=== PATIENT | female | born 1950 | race Caucasian/White ===

== ENCOUNTER 2017-11-01 13:03 | Inpatient (IN) | payer OTHER, BC ==
--- NOTE | 2017-11-01 13:41 | PDOC ---
History of Present Illness - General Chief Complaint: Revisit, Lab Variance Stated Complaint: LAB VARIANCE (PCP SENT) high wbc Time Seen by Provider: 11/01/17 13:40 - History of Present Illness Initial Comments: 11/01/17 13:41 Ms. Santiago is a 67 yo female w/ pmh of HTN, HLD, and recent admission for CHF with pulmonary edema 08/22/17 who presents for evaluation on advice of PCP (Dr. Taylor). She reports she had a checkup last week at which time a UTI was identified. She failed 2 different ABX w(Cipro/ keflex) is here as labs taken outpatient showed an increased WBC level. She currently has no complaints. The patient denies chest pain, shortness of breath, headache and dizziness. Denies fever, chills, nausea, vomit, diarrhea and constipation. Denies dysuria, frequency, urgency and hematuria. Allergies: NKDA Past History - Past Medical History Allergies/Adverse Reactions: Allergies Allergy/AdvReac Type Severity Reaction Status Date / Time No Known Allergies Allergy Verified 11/01/17 13:04 Home Medications: Ambulatory Orders Acetaminophen [Tylenol .Regular Strength -] 650 mg PO Q6H PRN tablet 09/04/17 Albuterol 2.5/Ipratropium 0.5 [Duoneb -] 1 amp NEB RQID amp 09/04/17 Chlorhexidine Gluconate [Hibiclens For Decolonization -] 1 applic TP HS bottle 09/04/17 Escitalopram Oxalate [Lexapro -] 10 mg PO DAILY tablet 09/04/17 Furosemide [Lasix -] 40 mg PO DAILY tablet 09/04/17 Heparin - 5,000 unit SQ BID vial 09/04/17 Metoprolol Tartrate [Lopressor -] 12.5 mg PO BID tablet 09/04/17 Nystatin Powder [Nystop Powder -] 1 applic TP DAILY applic 09/04/17 Pantoprazole Sodium [Protonix -] 40 mg PO DAILY tablet.ec 09/04/17 Valsartan [Diovan] 40 mg PO DAILY tablet 09/04/17 predniSONE [Deltasone -] 40 mg PO DAILY tablet 09/04/17 COPD: No HTN: Yes Hypercholesterolemia: Yes - Suicide/Smoking/Psychosocial Hx Smoking History: Never smoked Have you smoked in the past 12 months: No Information on smoking cessation initiated: No Hx Alcohol Use: No Drug/Substance Use Hx: No Substance Use Type: None Review of Systems - Review of Systems Comments:: 11/01/17 13:49 GENERAL/CONSTITUTIONAL: No fever or chills. No weakness. HEAD, EYES, EARS, NOSE AND THROAT: No change in vision. No ear pain or discharge. No sore throat. CARDIOVASCULAR: No chest pain or shortness of breath RESPIRATORY: No cough, wheezing, or hemoptysis. GASTROINTESTINAL: No nausea, vomiting, diarrhea or constipation. GENITOURINARY: No dysuria, frequency, or change in urination. MUSCULOSKELETAL: No joint or muscle swelling or pain. No neck or back pain. SKIN: No rash NEUROLOGIC: No headache, vertigo, loss of consciousness, or change in strength/ sensation. ENDOCRINE: No increased thirst. No abnormal weight change HEMATOLOGIC/LYMPHATIC: No anemia, easy bleeding, or history of blood clots. ALLERGIC/IMMUNOLOGIC: No hives or skin allergy. *Physical Exam - Vital Signs Last Vital Signs Temp Pulse Resp BP Pulse Ox 98.0 F 104 H 18 149/74 100 11/01/17 13:06 11/01/17 13:06 11/01/17 13:06 11/01/17 13:06 11/01/17 13:06 - Physical Exam Comments: 11/01/17 13:49 GENERAL: Awake, alert, and fully oriented, in no acute distress HEAD: No signs of trauma, normocephalic, atraumatic EYES: PERRLA, EOMI, sclera anicteric, conjunctiva clear ENT: Auricles normal inspection, hearing grossly normal, nares patent, oropharynx clear without exudates. Moist mucosa NECK: Normal ROM, supple, no lymphadenopathy, JVD, or masses LUNGS: No distress, speaks full sentences, clear to auscultation bilaterally HEART: Regular rate and rhythm, normal S1 and S2, no murmurs, rubs or gallops, peripheral pulses normal and equal bilaterally. ABDOMEN: Soft, nontender, normoactive bowel sounds. No guarding, no rebound. No masses EXTREMITIES: Normal inspection, Normal range of motion, no edema. No clubbing or cyanosis. NEUROLOGICAL: Cranial nerves II through XII grossly intact. Normal speech, normal gait, no focal sensorimotor deficits SKIN: +Sacral decubitus ulcer (grade 2) noted. Appears to be well healing. Warm , Dry, normal turgor, no rashes or lesions noted. ED Treatment Course - LABORATORY CBC & Chemistry Diagram: 11/01/17 14:40 11/01/17 14:40 Medical Decision Making - Medical Decision Making 11/01/17 14:14 Ms. Santiago is a 67 yo female w/ pmh as described who presents for evaluation of increased WBC as described. Evaluation begun and Dr. Taylor contacted for admission. 11/01/17 15:[address] Bay covering for Dr. Taylor. 11/01/17 16:00 Zosyn started for UTI treatment. *DC/Admit/Observation/Transfer Diagnosis at time of Disposition: UTI (urinary tract infection) Qualifiers: Urinary tract infection type: site unspecified Hematuria presence: without hematuria Qualified Code(s): N39.0 - Urinary tract infection, site not specified - Discharge Dispostion Admit: Yes - Referrals Referrals: Margaret Taylor MD [Primary Care Provider] - - Patient Instructions - Post Discharge Activity
--- NOTE | 2017-11-01 14:38 | PDOC ---
Attending Attestation - HPI HPI: 11/01/17 14:52 The patient is a 67 year old female with a significant PMH of HTN, HLD, and recent admission for CHF with pulmonary edema 08/22/17 who presents to the emergency department sent in for evaluation by Dr. Taylor (PCP) for increased WBC level. The patient was told she had a UTI during a routine check up last week at which time the patient was placed on antibiotics. The patient failed 2 different antibiotics but is unable to recall the names at this time. The patient denies dysuria, frequency, urgency and hematuria. Denies fever, chills, nausea, vomit, diarrhea and constipation. Allergies: NKA Past surgical history: None reported. Social history: No reported alcohol, drug, or cigarette use. PCP: Dr. Taylor <Jess Vidal - Last Filed: 11/01/17 14:52> - Resident Resident Name: Claude Liang - ED Attending Attestation I have performed the following: I have examined & evaluated the patient, The case was reviewed & discussed with the resident, I agree w/resident's findings & plan, Exceptions are as noted - Physicial Exam PE: GENERAL: Awake, alert, and fully oriented, in no acute distress HEAD: No signs of trauma EYES: PERRLA, EOMI, sclera anicteric, conjunctiva clear ENT: Auricles normal inspection, hearing grossly normal, nares patent, oropharynx clear without exudates. Moist mucosa NECK: Normal ROM, supple, no lymphadenopathy, JVD, or masses LUNGS: Breath sounds equal, clear to auscultation bilaterally. No wheezes, and no crackles HEART: Regular rate and rhythm, normal S1 and S2, no murmurs, rubs or gallops ABDOMEN: Soft, nontender, normoactive bowel sounds. No guarding, no rebound. + Lg ventral hernia. EXTREMITIES: Normal range of motion, no edema. No clubbing or cyanosis. No cords, erythema, or tenderness NEUROLOGICAL: Cranial nerves II through XII grossly intact. Normal speech, normal gait SKIN: Warm, Dry, normal turgor, no rashes. +Sacral decub. No surrounding cellulitis. - Medical Decision Making From history from patient it appears that she was on cipro and keflex, failed both. Sent for admission for worsening leukocytosis. Labs and cultures obtained. Pt admitted to Dr. Bay. <Candice Weiss - Last Filed: 11/01/17 16:51>
[2017-11-01 14:50] LABS: BASO % 0.8 % (0-2.0); EOS % 1.1 % (0-4.5); HEMATOCRIT 31.5 % (32.4-45.2); HEMOGLOBIN 10.2 GM/dL (10.7-15.3); LYMPH % 6.4 % (8-40); MCH 26.7 pg (25.7-33.7); MCHC 32.4 g/dl (32.0-36.0); MEAN CELL VOLUME 82.2 fl (80-96); MEAN PLT VOLUME 6.4 fl (7.5-11.1); MONO % 2.5 % (3.8-10.2); NEUT % 89.2 % (42.8-82.8); PLATELET COUNT 748 K/MM3 (134-434); RBC 3.83 M/mm3 (3.60-5.2); RDW 16.1 % (11.6-15.6); WHITE BLOOD COUNT 19.9 K/mm3 (4.0-10.0)
[2017-11-01 15:12] LABS: ALBUMIN 2.5 g/dl (3.4-5.0); ANION GAP 7 (8-16); BILIRUBIN,TOTAL 0.3 mg/dL (0.2-1.0); BLOOD UREA NITROGEN 25 mg/dL (7-18); CALCIUM 8.4 mg/dL (8.5-10.1); CHLORIDE 101 mmol/L (98-107); CO2 32 mmol/L (21-32); CREATININE 1.7 mg/dL (0.55-1.02); GLUCOSE,RANDOM 111 mg/dL (74-106); POTASSIUM 3.8 mmol/L (3.5-5.1); SGOT/AST 13 U/L (15-37); SGPT/ALT 6 U/L (12-78); SODIUM 140 mmol/L (136-145); TOT PROT 7.6 g/dl (6.4-8.2)
[2017-11-01 15:13] LABS: ALK PHOS 93 U/L (45-117)
[2017-11-01] MEDS ORDERED: PIPERACILLIN/TAZOB 3.375 GM 3.375 GM in DEXTROSE 5%-WATER - 50 ML IVPB ONE (15:58)
[2017-11-01] MEDS ORDERED: PIPERACILLIN/TAZOB 3.375 GM 3.375 GM/50 ML BAG IVPB ONE (17:01)
[2017-11-01] MEDS ORDERED: ACETAMINOPHEN 325 MG TABLET (FP) PO PRN (17:26)
[2017-11-01] MEDS ORDERED: ALBUTEROL SO4 2.5/IPRATROPIUM 0.5 INH SOL 3 ML VIAL.NEB. NEB PRN (17:26)
[2017-11-01 17:32] LABS: URINE APPEARANCE SLCLOUDY; URINE BILIRUBIN NEGATIVE (<2.0 mg/dL); URINE COLOR LTYELLOW; URINE GLUCOSE (UA) NEGATIVE (NEGATIVE); URINE KETONE NEGATIVE (NEGATIVE); URINE NITRITE NEGATIVE (NEGATIVE); URINE PROTEIN NEGATIVE (NEGATIVE); URINE UROBILINOGEN NEGATIVE mg/dL (0.2-1.0)
[2017-11-01 17:57] LABS: URINE LEUK ESTERASE 1+ (NEGATIVE)
[2017-11-01 18:02] LABS: EPI CELLS FEW /HPF (FEW); URINE BACTERIA MODERATE /hpf (NONE SEEN); URINE MUCUS RARE
[2017-11-01 18:25] VITALS: BMI 29.4
--- NOTE | 2017-11-01 20:14 | HP ---
Admitting History and Physical - Primary Care Physician PCP: Margaret Conrad - Admission Chief Complaint: LEUKOCYTOSIS/UTI History of Present Illness: SENT TO ED BY DR CONRAD FOR LEUKOCYTOSIS,WEAKNESS POSITIVE UTI History Source: Medical Record - Past Medical History Cardiovascular: Yes: HTN - Smoking History Smoking history: Never smoked Have you smoked in the past 12 months: No - Alcohol/Substance Use Hx Alcohol Use: No History of Substance Use: reports: None - Social History ADL: Independent History of Recent Travel: No Home Medications - Allergies Allergies/Adverse Reactions: Allergies Allergy/AdvReac Type Severity Reaction Status Date / Time No Known Allergies Allergy Verified 11/01/17 13:04 - Home Medications Home Medications: Ambulatory Orders Acetaminophen [Tylenol .Regular Strength -] 650 mg PO Q6H PRN tablet 09/04/17 Albuterol 2.5/Ipratropium 0.5 [Duoneb -] 1 amp NEB RQID amp 09/04/17 Chlorhexidine Gluconate [Hibiclens For Decolonization -] 1 applic TP HS bottle 09/04/17 Escitalopram Oxalate [Lexapro -] 10 mg PO DAILY tablet 09/04/17 Furosemide [Lasix -] 40 mg PO DAILY tablet 09/04/17 Heparin - 5,000 unit SQ BID vial 09/04/17 Metoprolol Tartrate [Lopressor -] 12.5 mg PO BID tablet 09/04/17 Nystatin Powder [Nystop Powder -] 1 applic TP DAILY applic 09/04/17 Pantoprazole Sodium [Protonix -] 40 mg PO DAILY tablet.ec 09/04/17 Valsartan [Diovan] 40 mg PO DAILY tablet 09/04/17 predniSONE [Deltasone -] 40 mg PO DAILY tablet 09/04/17 Collagenase Clostridium Hist. [Santyl] 1 tube TD DAILY 11/01/17 Family Disease History - Family Disease History Family Disease History: Heart Disease: Father, Mother Review of Systems - Review of Systems Constitutional: reports: Weakness Eyes: reports: No Symptoms HENT: reports: No Symptoms Neck: reports: No Symptoms Cardiovascular: reports: No Symptoms Respiratory: reports: Cough, SOB Gastrointestinal: reports: No Symptoms Genitourinary: reports: Frequency, Urgency Breasts: reports: No Symptoms Reported Musculoskeletal: reports: No Symptoms Integumentary: reports: No Symptoms Neurological: reports: No Symptoms Endocrine: reports: No Symptoms Hematology/Lymphatic: reports: No Symptoms Psychiatric: reports: No Symptoms Physical Examination Vital Signs: Vital Signs Temperature 98.8 F 11/01/17 18:03 Pulse Rate 93 H 11/01/17 18:03 Respiratory Rate 18 11/01/17 18:03 Blood Pressure 156/77 11/01/17 18:03 O2 Sat by Pulse Oximetry (%) 96 11/01/17 18:03 Constitutional: Yes: Mild Distress Eyes: Yes: WNL HENT: Yes: WNL Neck: Yes: WNL Cardiovascular: Yes: WNL Respiratory: Yes: WNL, Cough, On Nasal O2 Gastrointestinal: Yes: WNL Renal/: Yes: WNL Musculoskeletal: Yes: Muscle Weakness Extremities: Yes: WNL Edema: Yes Peripheral Pulses WNL: Yes Integumentary: Yes: WNL Wound/Incision: Yes: Clean/Dry Neurological: Yes: Pre-Existing Deficit ...Motor Strength: LLE, RLE Psychiatric: Yes: Other Labs: CBC, BMP 11/01/17 14:40 11/01/17 14:40 Problem List - Problems (1) UTI (urinary tract infection) Code(s): N39.0 - URINARY TRACT INFECTION, SITE NOT SPECIFIED Qualifiers: Urinary tract infection type: site unspecified Hematuria presence: without hematuria Qualified Code(s): N39.0 - Urinary tract infection, site not specified (2) CHARLY (acute kidney injury) Code(s): N17.9 - ACUTE KIDNEY FAILURE, UNSPECIFIED (3) Anxiety Code(s): F41.9 - ANXIETY DISORDER, UNSPECIFIED (4) CKD (chronic kidney disease) Code(s): N18.9 - CHRONIC KIDNEY DISEASE, UNSPECIFIED Assessment/Plan IV ABX CHECK CULTURES RESP EVAL FOR CHRONIC LUNG DISEASE RENAL EVAL
[2017-11-01] MEDS: HEPARIN NA (PORCINE) 5,000 UNITS/ML 1ML VIAL SQ SCH (22:04)
[2017-11-02 08:13] LABS: HEMATOCRIT 28.1 % (32.4-45.2); HEMOGLOBIN 9.3 GM/dL (10.7-15.3); MCH 27.2 pg (25.7-33.7); MCHC 33.1 g/dl (32.0-36.0); MEAN CELL VOLUME 82.3 fl (80-96); MEAN PLT VOLUME 6.6 fl (7.5-11.1); PLATELET COUNT 664 K/MM3 (134-434); RBC 3.42 M/mm3 (3.60-5.2); RDW 16.3 % (11.6-15.6); WHITE BLOOD COUNT 14.4 K/mm3 (4.0-10.0)
--- NOTE | 2017-11-02 08:14 | PN ---
Progress Note (short form) - Note Progress Note: ID Late August admission for pulmonary edema says had colunga at athat time for I& O Now found to have leukocytosis as outpt with NO complaints Admitted for this reason. Looks comfortable Temp 100 on admission Selected Entries 11/02/17 06:00 Temperature 98.4 F Pulse Rate 92 H Respiratory 18 Rate Blood Pressure 151/72 Microbiology 10/29/17 14:22 Urine - Urine Clean Catch Urine Culture - Final Escherichia Coli Esbl Sheet Rock Hanger 08/27/17 06:50 Urine - Urine Clean Catch Urine Culture - Final Escherichia Coli Escherichia Coli#2 Laboratory Tests 11/01/17 11/01/17 11/01/17 14:40 14:40 17:10 WBC 19.9 H Hct 31.5 L Plt Count 748 H Neutrophils % 89.2 H Lymphocytes % 6.4 L Monocytes % 2.5 L Total Bilirubin 0.3 AST 13 L ALT 6 L Urine RBC (Auto) 4 Assessment Suspect UTI with MDRO ESBL cultured previously last admission. Elevated platelets ?? Plan ISOLATE ERTEPENEM 1 GRAM DAILY CRP ESR Tatyana THRASHER Problem List - Problems (1) Infection due to multidrug resistant organism, newly diagnosed Code(s): Z16.24 - RESISTANCE TO MULTIPLE ANTIBIOTICS (2) UTI (urinary tract infection) Code(s): N39.0 - URINARY TRACT INFECTION, SITE NOT SPECIFIED Qualifiers: Urinary tract infection type: site unspecified Hematuria presence: without hematuria Qualified Code(s): N39.0 - Urinary tract infection, site not specified (3) Thrombocytosis Code(s): D47.3 - ESSENTIAL (HEMORRHAGIC) THROMBOCYTHEMIA
[2017-11-02 08:48] LABS: ALK PHOS 74 U/L (45-117); ANION GAP 6 (8-16); BILIRUBIN,TOTAL 0.3 mg/dL (0.2-1.0); BLOOD UREA NITROGEN 21 mg/dL (7-18); CALCIUM 7.9 mg/dL (8.5-10.1); CHLORIDE 105 mmol/L (98-107); CHOLESTEROL 108 mg/dL (50-200); CO2 32 mmol/L (21-32); CREATININE 1.5 mg/dL (0.55-1.02); GLUCOSE,RANDOM 104 mg/dL (74-106); HDL CHOLESTEROL 22 mg/dL (40-60); POTASSIUM 3.9 mmol/L (3.5-5.1); SGOT/AST 12 U/L (15-37); SGPT/ALT < 6 U/L (12-78); SODIUM 143 mmol/L (136-145); TOT PROT 6.2 g/dl (6.4-8.2); TRIGLYCERIDES 165 mg/dL (35-160)
--- NOTE | 2017-11-02 08:49 | EKG ---
Test Reason : Blood Pressure : / mmHG Vent. Rate : 082 BPM Atrial Rate : 082 BPM P-R Int : 138 ms QRS Dur : 122 ms QT Int : 428 ms P-R-T Axes : 030 -15 048 degrees QTc Int : 500 ms SINUS RHYTHM WITH PREMATURE ATRIAL COMPLEXES RSR' OR QR PATTERN IN V1 SUGGESTS RIGHT VENTRICULAR CONDUCTION DELAY CANNOT RULE OUT ANTERIOR INFARCT (CITED ON OR BEFORE 22-AUG-2017) ABNORMAL ECG WHEN COMPARED WITH ECG OF 22-AUG-2017 09:29, NONSPECIFIC T WAVE ABNORMALITY, IMPROVED IN LATERAL LEADS Confirmed by RENATO CORDOBA MD ([id number]) on 11/02/2017 8:49:13 AM Referred By: Confirmed By:RENATO CORDOBA MD
--- NOTE | 2017-11-02 08:58 | CONS ---
DATE OF CONSULTATION: HISTORY: This is a 67-year-old female with a history of congestive heart failure and hypertension admitted for evaluation of a leukocytosis. She had been hospitalized in August for pulmonary edema and had a Granados catheter inserted at that time. Looking back on her previous cultures, October 29 she had Escherichia coli ESBL stock transfer clerk in the urine culture. A September 01 culture had 2 species of pansensitive Escherichia coli. She had been discharged to rehabilitation and then discharged home where she has been for several weeks. She followed up with Dr. Taylor this week in the office, and lab work revealed a leukocytosis for which she is now admitted. She denied fever, but her temperature here was 100 degrees. She denied any chills, urinary complaints, abdominal pain, diarrhea, cough, or shortness of breath. PAST MEDICAL HISTORY: As noted above. CURRENT MEDICATIONS: Prednisone 40 mg, Diovan. ALLERGIES: None known. SOCIAL HISTORY: Nonsmoker. No history of alcohol use. FAMILY HISTORY: Reviewed and noncontributory. REVIEW OF SYSTEMS: Respiratory: Denies cough or shortness of breath. Cardiac: History of pulmonary edema. No chest pain or palpitations. Gastrointestinal: No nausea, vomiting, diarrhea, abdominal pain. Genitourinary: No dysuria, hematuria, urinary frequency. PHYSICAL EXAMINATION: General: She is an alert female in no acute distress. Vital Signs: Temperature now 98.4, pulse 92, blood pressure 150/72, respirations 18. Neck: Supple without adenopathy. Lungs: Clear to percussion and auscultation. Heart: S1, S2. Regular rhythm without audible murmur. Abdomen: Soft and nontender without hepatosplenomegaly. Extremities: With lower extremity peripheral edema noted. LABORATORY DATA: White count 20,000, hemoglobin 10.2, hematocrit 31.5, platelets 748 with 89% polys, 6 lymphocytes, 2 monocytes. BUN 25, creatinine 1.7. Liver enzymes within normal limits. Urinalysis with 27 WBCs, 4 RBCs, 1+ leukocyte esterase. Blood and urine cultures pending. Chest x-ray dated November 01 in the emergency room reviewed shows a persistent, small right pleural effusion. ASSESSMENT: A 67-year-old female with a history of congestive heart failure who presents now for evaluation of leukocytosis. Thrombocytosis also noted. Her urinalysis is positive for white cells, and she has a history of extended-spectrum beta-lactamase for a previous admission. At this point, she has received a dose of Zosyn. I would await blood and urine cultures. Place her on contact isolation for resistant organism. Repeat her CBC regarding white count and platelet count. Chronic renal insufficiency is noted. I will treat her with a gram of ertapenem daily and monitor the white count and culture results. GEORGE COOK M.D. [id number]
[2017-11-02] MEDS: predniSONE 20 MG TABLET (UD) PO SCH (09:48)
[2017-11-02] MEDS: HEPARIN NA (PORCINE) 5,000 UNITS/ML 1ML VIAL SQ SCH ×2 (09:48→21:24)
[2017-11-02] MEDS: VALSARTAN 80 MG TABLET (UD) PO SCH (09:48)
[2017-11-02] MEDS: ESCITALOPRAM OXALATE 10 MG TABLET (FP) PO SCH (09:48)
[2017-11-02] MEDS: FUROSEMIDE 40 MG TABLET (FP) PO SCH (09:48)
[2017-11-02] MEDS: PANTOPRAZOLE 40 MG TABLET (FP) PO SCH (09:48)
--- NOTE | 2017-11-02 09:53 | CON.PULM ---
Consult Consult Specialty:: PULMONARY Referred by:: SAHARA Reason for Consultation:: PLEURAL EFFUSION - History of Present Illness Chief Complaint: UTI History of Present Illness: Ms. Santiago is a 67 yo female w/ pmh of HTN, HLD, and recent admission for CHF with pulmonary edema 08/22/17 who presents for evaluation on advice of PCP (Dr. Taylor). She reports she had a checkup last week at which time a UTI was identified. She failed 2 different ABX w(Cipro/ keflex) is here as labs taken outpatient showed an increased WBC level. She currently has no complaints.The patient denies chest pain, shortness of breath, headache and dizziness. Denies fever, chills, nausea, vomit, diarrhea and constipation. Denies dysuria, frequency, urgency and hematuria. - History Source History Provided By: Patient, Medical Record Limitations to Obtaining History: No Limitations - Past Medical History PSYCH ASSISTANT: No: Alzheimer's Cardio/Vascular: Yes: CHF, HTN. No: AFIB Pulmonary: Yes: Other (PLEURAL EFFUSION). No: Asthma - Alcohol/Substance Use Hx Alcohol Use: No History of Substance Use: reports: None - Smoking History Smoking history: Never smoked Have you smoked in the past 12 months: No - Social History Usual Living Arrangement: Alone (, sons live nearby) ADL: Independent History of Recent Travel: No Home Medications - Allergies Allergies/Adverse Reactions: Allergies Allergy/AdvReac Type Severity Reaction Status Date / Time No Known Allergies Allergy Verified 11/01/17 13:04 - Home Medications Home Medications: Ambulatory Orders Acetaminophen [Tylenol .Regular Strength -] 650 mg PO Q6H PRN tablet 09/04/17 Albuterol 2.5/Ipratropium 0.5 [Duoneb -] 1 amp NEB RQID amp 09/04/17 Chlorhexidine Gluconate [Hibiclens For Decolonization -] 1 applic TP HS bottle 09/04/17 Escitalopram Oxalate [Lexapro -] 10 mg PO DAILY tablet 09/04/17 Furosemide [Lasix -] 40 mg PO DAILY tablet 09/04/17 Heparin - 5,000 unit SQ BID vial 09/04/17 Metoprolol Tartrate [Lopressor -] 12.5 mg PO BID tablet 09/04/17 Nystatin Powder [Nystop Powder -] 1 applic TP DAILY applic 09/04/17 Pantoprazole Sodium [Protonix -] 40 mg PO DAILY tablet.ec 09/04/17 Valsartan [Diovan] 40 mg PO DAILY tablet 09/04/17 predniSONE [Deltasone -] 40 mg PO DAILY tablet 09/04/17 Collagenase Clostridium Hist. [Santyl] 1 tube TD DAILY 11/01/17 Family Disease History - Family Disease History Family Disease History: Heart Disease: Father, Mother Review of Systems - Review of Systems Constitutional: denies: Fever Eyes: denies: Blurred Vision HENT: denies: Ear Discharge Neck: denies: Lumps Cardiovascular: denies: Edema Respiratory: reports: SOB on Exertion Gastrointestinal: denies: Abdominal Pain Physical Exam Vital Sings: Vital Signs Temperature 98.5 F 11/02/17 09:42 Pulse Rate 97 H 11/02/17 09:42 Respiratory Rate 18 11/02/17 09:42 Blood Pressure 159/71 11/02/17 09:42 O2 Sat by Pulse Oximetry (%) 97 11/01/17 21:00 Constitutional: Yes: Calm Eyes: Yes: EOM Intact HENT: Yes: Normocephalic Neck: Yes: Trachea Midline Cardiovascular: Yes: Regular Rate and Rhythm Respiratory: Yes: CTA Bilaterally ...Inspection: Yes: WNL Gastrointestinal: Yes: Soft Edema: No Labs: CBC, BMP 11/02/17 07:00 11/02/17 07:00 Imaging - Results Chest X-ray: Report Reviewed, Image Reviewed Problem List - Problems (1) Pleural effusion Code(s): J90 - PLEURAL EFFUSION, NOT ELSEWHERE CLASSIFIED (2) UTI (urinary tract infection) Code(s): N39.0 - URINARY TRACT INFECTION, SITE NOT SPECIFIED (3) CHARLY (acute kidney injury) Code(s): N17.9 - ACUTE KIDNEY FAILURE, UNSPECIFIED (4) Anxiety Code(s): F41.9 - ANXIETY DISORDER, UNSPECIFIED Assessment/Plan RESPIRATORY STATUS REMAINS STABLE ON CURRENT REGIME BLUNTING OF RIGHT COSTOPHRENIC ANGLE A CONSEQUENCE OF PREVIOUS PULMONARY EDEMA WOULD MONITOR FOR NOW UTI/ABS PER ID THANK YOU, Neto SHARPE MD
[2017-11-02] MEDS ORDERED: PT OWN MED DRAWER 7, Y5N ONE (10:52)
[2017-11-02] MEDS: ERTAPENEM SODIUM 1 GM in SODIUM CHLORIDE 50 ML IVPB SCH (11:33)
[2017-11-02] MEDS: NYSTATIN POWDER 100,000 UNITS/GM - 15 GM TOPICAL POWDER TP SCH ×2 (11:33→22:22)
[2017-11-02] MEDS: COLLAGENASE CLOSTRIDIUM HIST. 30 GRAMS TUBE TP SCH (14:48)
--- NOTE | 2017-11-02 15:20 | CONSULT ---
Consult Consult Specialty:: Nephrology Reason for Consultation:: CKD - History of Present Illness Chief Complaint: sent in for elevated wbc History of Present Illness: Pt is a 67 year old female with pmhx of HTN, CKD, CHF and HLD. She was sent in for elevated WBC. She did have a UTI which did not respond to PO abx. She denies fevers or chills. She was found to have elevated creatinine and I was called to evaluate her. She does have hx of CKD but did not come for her workup. She denies dysuria or hematuria. She denies nsaid use. 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 No: AFIB Pulmonary: Yes: Other (PLEURAL EFFUSION). No: Asthma Renal/: Yes: Renal Inusuff - Alcohol/Substance Use Hx Alcohol Use: No History of Substance Use: reports: None - Smoking History Smoking history: Never smoked Have you smoked in the past 12 months: No - Social History Usual Living Arrangement: Alone (, sons live nearby) ADL: Independent History of Recent Travel: No Home Medications - Allergies Allergies/Adverse Reactions: Allergies Allergy/AdvReac Type Severity Reaction Status Date / Time No Known Allergies Allergy Verified 11/01/17 13:04 - Home Medications Home Medications: Ambulatory Orders Acetaminophen [Tylenol .Regular Strength -] 650 mg PO Q6H PRN tablet 09/04/17 Albuterol 2.5/Ipratropium 0.5 [Duoneb -] 1 amp NEB RQID amp 09/04/17 Chlorhexidine Gluconate [Hibiclens For Decolonization -] 1 applic TP HS bottle 09/04/17 Escitalopram Oxalate [Lexapro -] 10 mg PO DAILY tablet 09/04/17 Furosemide [Lasix -] 40 mg PO DAILY tablet 09/04/17 Heparin - 5,000 unit SQ BID vial 09/04/17 Metoprolol Tartrate [Lopressor -] 12.5 mg PO BID tablet 09/04/17 Nystatin Powder [Nystop Powder -] 1 applic TP DAILY applic 09/04/17 Pantoprazole Sodium [Protonix -] 40 mg PO DAILY tablet.ec 09/04/17 Valsartan [Diovan] 40 mg PO DAILY tablet 09/04/17 predniSONE [Deltasone -] 40 mg PO DAILY tablet 09/04/17 Collagenase Clostridium Hist. [Santyl] 1 tube TD DAILY 11/01/17 Family Disease History - Family Disease History Family Disease History: Heart Disease: Father, Mother Review of Systems - Review of Systems Constitutional: reports: No Symptoms Eyes: reports: No Symptoms HENT: reports: No Symptoms Neck: reports: No Symptoms Cardiovascular: reports: No Symptoms Respiratory: reports: No Symptoms Gastrointestinal: reports: No Symptoms Genitourinary: reports: No Symptoms Musculoskeletal: reports: No Symptoms Integumentary: reports: No Symptoms Neurological: reports: No Symptoms Endocrine: reports: No Symptoms Hematology/Lymphatic: reports: No Symptoms Psychiatric: reports: No Symptoms Physical Exam Vital Signs: Vital Signs Temperature 97.9 F 11/02/17 13:47 Pulse Rate 102 H 11/02/17 13:47 Respiratory Rate 18 11/02/17 13:47 Blood Pressure 154/82 11/02/17 13:47 O2 Sat by Pulse Oximetry (%) 97 11/01/17 21:00 Constitutional: Yes: Calm Eyes: Yes: Conjunctiva Clear HENT: Yes: Atraumatic Neck: Yes: Supple Cardiovascular: Yes: S1, S2 Respiratory: Yes: CTA Bilaterally Gastrointestinal: Yes: Soft, Hernia Renal/: Yes: WNL Musculoskeletal: Yes: WNL Edema: No Neurological: Yes: Oriented Psychiatric: Yes: Oriented Labs: CBC, BMP 11/02/17 07:00 11/02/17 07:00 Laboratory Tests 08/30/17 08/31/17 09/01/17 06:15 05:30 06:05 WBC Hgb BUN Creatinine 1.8 H 1.7 H 1.7 H Urine Protein Urine Blood 09/02/17 09/03/17 09/04/17 05:45 05:50 06:30 WBC Hgb BUN Creatinine 1.8 H 1.5 H 1.2 H Urine Protein Urine Blood 10/29/17 11/01/17 11/01/17 14:04 14:40 14:40 WBC Hgb 10.2 L BUN Creatinine 1.5 H 1.7 H Urine Protein Urine Blood 11/01/17 11/02/17 11/02/17 17:10 07:00 07:00 WBC 14.4 H Hgb 9.3 L BUN 21 H Creatinine 1.5 H Urine Protein Negative Urine Blood 1+ H Imaging - Results Chest X-ray: Report Reviewed Problem List - Problems (1) UTI (urinary tract infection) Code(s): N39.0 - URINARY TRACT INFECTION, SITE NOT SPECIFIED Qualifiers: Urinary tract infection type: site unspecified Hematuria presence: without hematuria Qualified Code(s): N39.0 - Urinary tract infection, site not specified (2) CKD (chronic kidney disease) Code(s): N18.9 - CHRONIC KIDNEY DISEASE, UNSPECIFIED Assessment/Plan Current Medications Generic Name Dose Route Start Last Admin Trade Name Freq PRN Reason Stop Dose Admin Acetaminophen 650 mg 11/01/17 17:26 Tylenol - PO Q6H PRN PAIN LEVEL 6-10 Albuterol/Ipratropium 1 amp 11/01/17 17:26 Duoneb - NEB Q6H PRN SHORTNESS OF BREATH Collagenase 1 applic 11/02/17 11:30 11/02/17 14:48 Santyl - TP 1 applic DAILY [facility] Administration Escitalopram Oxalate 10 mg 11/02/17 10:00 11/02/17 09:48 Lexapro - PO 10 mg DAILY [facility] Administration Furosemide 40 mg 11/02/17 10:00 11/02/17 09:48 Lasix - PO 40 mg DAILY [facility] Administration Heparin Sodium (Porcine) 5,000 unit 11/01/17 22:00 11/02/17 09:48 Heparin - SQ 5,000 unit BID [facility] Administration Ertapenem 1 gm/ Sodium 50 mls @ 50 mls/hr 11/02/17 10:00 11/02/17 11:33 Chloride IVPB 50 mls/hr DAILY [facility] Administration Protocol Nystatin 1 applic 11/02/17 10:00 11/02/17 11:33 Nystop Powder - TP Not Given DAILY [facility] Pantoprazole Sodium 40 mg 11/02/17 10:00 11/02/17 09:48 Protonix - PO 40 mg DAILY [facility] Administration Prednisone 40 mg 11/02/17 10:00 11/02/17 09:48 Deltasone - PO 40 mg DAILY [facility] Administration Valsartan 80 mg 11/02/17 10:00 11/02/17 09:48 Diovan - PO 80 mg DAILY [facility] Administration Impression 1. CKD 2. UTI 3. HTN 4. pleural effusion 5. CHF 6. hx smoking Plan - cont abx - renal function near baseline - cont diovan and lasix - monitor renal function - will need further workup and follow up after discharge
--- NOTE | 2017-11-02 17:30 | PN ---
Progress Note, Physician Chief Complaint: AWAKE ALERT DENIES FEVER OR CHILLS - Current Medication List Current Medications: Active Medications Acetaminophen (Tylenol -) 650 mg PO Q6H PRN PRN Reason: PAIN LEVEL 6-10 Albuterol/Ipratropium (Duoneb -) 1 amp NEB Q6H PRN PRN Reason: SHORTNESS OF BREATH Collagenase (Santyl -) 1 applic TP DAILY [facility] Last Admin: 11/02/17 14:48 Dose: 1 applic Escitalopram Oxalate (Lexapro -) 10 mg PO DAILY [facility] Last Admin: 11/02/17 09:48 Dose: 10 mg Furosemide (Lasix -) 40 mg PO DAILY [facility] Last Admin: 11/02/17 09:48 Dose: 40 mg Heparin Sodium (Porcine) (Heparin -) 5,000 unit SQ BID [facility] Last Admin: 11/02/17 09:48 Dose: 5,000 unit Ertapenem 1 gm/ Sodium (Chloride) 50 mls @ 50 mls/hr IVPB DAILY [facility] PRN Reason: Protocol Last Admin: 11/02/17 11:33 Dose: 50 mls/hr Nystatin (Nystop Powder -) 1 applic TP DAILY [facility] Last Admin: 11/02/17 11:33 Dose: Not Given Pantoprazole Sodium (Protonix -) 40 mg PO DAILY [facility] Last Admin: 11/02/17 09:48 Dose: 40 mg Prednisone (Deltasone -) 40 mg PO DAILY [facility] Last Admin: 11/02/17 09:48 Dose: 40 mg Valsartan (Diovan -) 80 mg PO DAILY [facility] Last Admin: 11/02/17 09:48 Dose: 80 mg - Objective Vital Signs: Vital Signs Temperature 98.7 F 11/02/17 16:15 Pulse Rate 95 H 11/02/17 16:15 Respiratory Rate 18 11/02/17 16:15 Blood Pressure 153/70 11/02/17 16:15 O2 Sat by Pulse Oximetry (%) 97 11/02/17 09:42 Constitutional: Yes: No Distress Eyes: Yes: WNL HENT: Yes: WNL Neck: Yes: WNL Cardiovascular: Yes: WNL Respiratory: Yes: WNL Gastrointestinal: Yes: WNL Genitourinary: Yes: WNL Musculoskeletal: Yes: Muscle Weakness Extremities: Yes: WNL Edema: No Peripheral Pulses WNL: Yes Integumentary: Yes: Pressure Ulcer (SACRAL) Wound/Incision: Yes: Clean/Dry Neurological: Yes: WNL ...Motor Strength: WNL Psychiatric: Yes: WNL Labs: CBC, BMP 11/02/17 07:00 11/02/17 07:00 Problem List - Problems (1) UTI (urinary tract infection) Code(s): N39.0 - URINARY TRACT INFECTION, SITE NOT SPECIFIED Qualifiers: Urinary tract infection type: site unspecified Hematuria presence: without hematuria Qualified Code(s): N39.0 - Urinary tract infection, site not specified (2) CHARLY (acute kidney injury) Code(s): N17.9 - ACUTE KIDNEY FAILURE, UNSPECIFIED (3) Anxiety Code(s): F41.9 - ANXIETY DISORDER, UNSPECIFIED (4) CKD (chronic kidney disease) Code(s): N18.9 - CHRONIC KIDNEY DISEASE, UNSPECIFIED Assessment/Plan IV ABX CHECK CULTURES RESP EVAL FOR CHRONIC LUNG DISEASE RENAL EVAL [facility]
[2017-11-03] MEDS ORDERED: PT OWN MED DRAWER 7, Y5N ONE (09:35)
[2017-11-03] MEDS: FUROSEMIDE 40 MG TABLET (FP) PO SCH (09:44)
[2017-11-03] MEDS: NYSTATIN POWDER 100,000 UNITS/GM - 15 GM TOPICAL POWDER TP SCH (09:44)
[2017-11-03] MEDS: ERTAPENEM SODIUM 1 GM in SODIUM CHLORIDE 50 ML IVPB SCH (09:44)
[2017-11-03] MEDS: predniSONE 20 MG TABLET (UD) PO SCH (09:44)
[2017-11-03] MEDS: PANTOPRAZOLE 40 MG TABLET (FP) PO SCH (09:44)
[2017-11-03] MEDS: VALSARTAN 80 MG TABLET (UD) PO SCH (09:44)
[2017-11-03] MEDS: HEPARIN NA (PORCINE) 5,000 UNITS/ML 1ML VIAL SQ SCH ×2 (09:44→22:27)
[2017-11-03] MEDS: ESCITALOPRAM OXALATE 10 MG TABLET (FP) PO SCH (09:44)
[2017-11-03] MEDS: COLLAGENASE CLOSTRIDIUM HIST. 30 GRAMS TUBE TP SCH (09:45)
--- NOTE | 2017-11-03 11:36 | PN ---
Progress Note (short form) - Note Progress Note: PULMONARY AWAKE/ALERT/AFEBRILE PALE/ANICTERIC Constitutional: Yes: Calm Eyes: Yes: EOM Intact HENT: Yes: Normocephalic Neck: Yes: Trachea Midline Cardiovascular: Yes: Regular Rate and Rhythm Respiratory: Yes: CTA Bilaterally Gastrointestinal: Yes: Soft Edema: No Imaging - Results Chest X-ray: Report Reviewed, Image Reviewed Problem List - Problems (1) Pleural effusion Code(s): J90 - PLEURAL EFFUSION, NOT ELSEWHERE CLASSIFIED (2) UTI (urinary tract infection) Code(s): N39.0 - URINARY TRACT INFECTION, SITE NOT SPECIFIED (3) CHARLY (acute kidney injury) Code(s): N17.9 - ACUTE KIDNEY FAILURE, UNSPECIFIED (4) Anxiety Code(s): F41.9 - ANXIETY DISORDER, UNSPECIFIED Assessment/Plan RESPIRATORY STATUS REMAINS STABLE ON CURRENT REGIME BLUNTING OF RIGHT COSTOPHRENIC ANGLE A CONSEQUENCE OF PREVIOUS PULMONARY EDEMA WOULD MONITOR FOR NOW UTI/ABS PER MARIA DEL ROSARIO SHARPE MD Problem List - Problems (1) Pleural effusion Code(s): J90 - PLEURAL EFFUSION, NOT ELSEWHERE CLASSIFIED (2) UTI (urinary tract infection) Code(s): N39.0 - URINARY TRACT INFECTION, SITE NOT SPECIFIED (3) CHARLY (acute kidney injury) Code(s): N17.9 - ACUTE KIDNEY FAILURE, UNSPECIFIED (4) Anxiety Code(s): F41.9 - ANXIETY DISORDER, UNSPECIFIED
--- NOTE | 2017-11-03 12:03 | PN ---
Progress Note, Physician Chief Complaint: IN BED AWAKE SON BEDSIDE NO DISTRESS - Current Medication List Current Medications: Active Medications Acetaminophen (Tylenol -) 650 mg PO Q6H PRN PRN Reason: PAIN LEVEL 6-10 Albuterol/Ipratropium (Duoneb -) 1 amp NEB Q6H PRN PRN Reason: SHORTNESS OF BREATH Collagenase (Santyl -) 1 applic TP DAILY [facility] Last Admin: 11/03/17 09:45 Dose: 1 applic Escitalopram Oxalate (Lexapro -) 10 mg PO DAILY [facility] Last Admin: 11/03/17 09:44 Dose: 10 mg Furosemide (Lasix -) 40 mg PO DAILY [facility] Last Admin: 11/03/17 09:44 Dose: 40 mg Heparin Sodium (Porcine) (Heparin -) 5,000 unit SQ BID [facility] Last Admin: 11/03/17 09:44 Dose: 5,000 unit Ertapenem 1 gm/ Sodium (Chloride) 50 mls @ 50 mls/hr IVPB DAILY [facility] PRN Reason: Protocol Last Admin: 11/03/17 09:44 Dose: 50 mls/hr Nystatin (Nystop Powder -) 1 applic TP DAILY [facility] Last Admin: 11/03/17 09:44 Dose: 1 applic Pantoprazole Sodium (Protonix -) 40 mg PO DAILY [facility] Last Admin: 11/03/17 09:44 Dose: 40 mg Prednisone (Deltasone -) 40 mg PO DAILY [facility] Last Admin: 11/03/17 09:44 Dose: 40 mg Valsartan (Diovan -) 80 mg PO DAILY [facility] Last Admin: 11/03/17 09:44 Dose: 80 mg - Objective Vital Signs: Vital Signs Temperature 97.5 F L 11/03/17 10:00 Pulse Rate 86 11/03/17 10:00 Respiratory Rate 20 11/03/17 10:00 Blood Pressure 143/68 11/03/17 10:00 O2 Sat by Pulse Oximetry (%) 89 L 11/03/17 09:00 Constitutional: Yes: No Distress Eyes: Yes: WNL HENT: Yes: WNL Neck: Yes: WNL Cardiovascular: Yes: WNL Respiratory: Yes: WNL Gastrointestinal: Yes: WNL Genitourinary: Yes: WNL Musculoskeletal: Yes: WNL Extremities: Yes: WNL Edema: No Peripheral Pulses WNL: Yes Integumentary: Yes: Pressure Ulcer. No: WNL (BUTTOCK ULCER) Wound/Incision: Yes: Dressing Dry and Intact Neurological: Yes: Pre-Existing Deficit ...Motor Strength: LLE, RLE Psychiatric: Yes: Other Labs: CBC, BMP 11/02/17 07:00 11/02/17 07:00 Problem List - Problems (1) UTI (urinary tract infection) Code(s): N39.0 - URINARY TRACT INFECTION, SITE NOT SPECIFIED Qualifiers: Urinary tract infection type: site unspecified Hematuria presence: without hematuria Qualified Code(s): N39.0 - Urinary tract infection, site not specified (2) CHARLY (acute kidney injury) Code(s): N17.9 - ACUTE KIDNEY FAILURE, UNSPECIFIED (3) Anxiety Code(s): F41.9 - ANXIETY DISORDER, UNSPECIFIED (4) CKD (chronic kidney disease) Code(s): N18.9 - CHRONIC KIDNEY DISEASE, UNSPECIFIED Assessment/Plan IV ABX CHECK CULTURES RESP EVAL FOR CHRONIC LUNG DISEASE RENAL EVAL [facility]
--- NOTE | 2017-11-03 13:18 | PN ---
Progress Note, Physician History of Present Illness: Awake, alert Supine in bed No complaints Denies dysuria No suprapubic or flank pain Afebrile WBC improved Urine c/s LF BC (-) - Current Medication List Current Medications: Active Medications Acetaminophen (Tylenol -) 650 mg PO Q6H PRN PRN Reason: PAIN LEVEL 6-10 Albuterol/Ipratropium (Duoneb -) 1 amp NEB Q6H PRN PRN Reason: SHORTNESS OF BREATH Collagenase (Santyl -) 1 applic TP DAILY [facility] Last Admin: 11/03/17 09:45 Dose: 1 applic Escitalopram Oxalate (Lexapro -) 10 mg PO DAILY [facility] Last Admin: 11/03/17 09:44 Dose: 10 mg Furosemide (Lasix -) 40 mg PO DAILY [facility] Last Admin: 11/03/17 09:44 Dose: 40 mg Heparin Sodium (Porcine) (Heparin -) 5,000 unit SQ BID [facility] Last Admin: 11/03/17 09:44 Dose: 5,000 unit Ertapenem 1 gm/ Sodium (Chloride) 50 mls @ 50 mls/hr IVPB DAILY [facility] PRN Reason: Protocol Last Admin: 11/03/17 09:44 Dose: 50 mls/hr Nystatin (Nystop Powder -) 1 applic TP DAILY [facility] Last Admin: 11/03/17 09:44 Dose: 1 applic Pantoprazole Sodium (Protonix -) 40 mg PO DAILY [facility] Last Admin: 11/03/17 09:44 Dose: 40 mg Prednisone (Deltasone -) 40 mg PO DAILY [facility] Last Admin: 11/03/17 09:44 Dose: 40 mg Valsartan (Diovan -) 80 mg PO DAILY [facility] Last Admin: 11/03/17 09:44 Dose: 80 mg - Objective Vital Signs: Vital Signs Temperature 97.5 F L 11/03/17 10:00 Pulse Rate 86 11/03/17 10:00 Respiratory Rate 20 11/03/17 10:00 Blood Pressure 143/68 11/03/17 10:00 O2 Sat by Pulse Oximetry (%) 89 L 11/03/17 09:00 Constitutional: Yes: No Distress Cardiovascular: Yes: Regular Rate and Rhythm, S1, S2 Respiratory: Yes: CTA Bilaterally Gastrointestinal: Yes: Normal Bowel Sounds, Soft. No: Tenderness Genitourinary: No: CVA Tenderness - Left, CVA Tenderness - Right Labs: CBC, BMP 11/02/17 07:00 11/02/17 07:00 Assessment/Plan UTI Hx ESBL Leukocytosis Azotemia Continue ertapenem Await urine c/s
--- NOTE | 2017-11-03 16:42 | PN ---
Progress Note, Physician History of Present Illness: Pt seen and examined at bedside. She says she feels well. She denies fevers or chills. - Current Medication List Current Medications: Active Medications Acetaminophen (Tylenol -) 650 mg PO Q6H PRN PRN Reason: PAIN LEVEL 6-10 Albuterol/Ipratropium (Duoneb -) 1 amp NEB Q6H PRN PRN Reason: SHORTNESS OF BREATH Collagenase (Santyl -) 1 applic TP DAILY [facility] Last Admin: 11/03/17 09:45 Dose: 1 applic Escitalopram Oxalate (Lexapro -) 10 mg PO DAILY [facility] Last Admin: 11/03/17 09:44 Dose: 10 mg Furosemide (Lasix -) 40 mg PO DAILY [facility] Last Admin: 11/03/17 09:44 Dose: 40 mg Heparin Sodium (Porcine) (Heparin -) 5,000 unit SQ BID [facility] Last Admin: 11/03/17 09:44 Dose: 5,000 unit Ertapenem 1 gm/ Sodium (Chloride) 50 mls @ 50 mls/hr IVPB DAILY [facility] PRN Reason: Protocol Last Admin: 11/03/17 09:44 Dose: 50 mls/hr Nystatin (Nystop Powder -) 1 applic TP DAILY [facility] Last Admin: 11/03/17 09:44 Dose: 1 applic Pantoprazole Sodium (Protonix -) 40 mg PO DAILY [facility] Last Admin: 11/03/17 09:44 Dose: 40 mg Prednisone (Deltasone -) 40 mg PO DAILY [facility] Last Admin: 11/03/17 09:44 Dose: 40 mg Valsartan (Diovan -) 80 mg PO DAILY [facility] Last Admin: 11/03/17 09:44 Dose: 80 mg - Objective Vital Signs: Vital Signs Temperature 97.9 F 11/03/17 13:52 Pulse Rate 89 11/03/17 14:53 Respiratory Rate 20 11/03/17 14:53 Blood Pressure 161/77 11/03/17 14:53 O2 Sat by Pulse Oximetry (%) 89 L 11/03/17 09:00 Constitutional: Yes: Calm Eyes: Yes: Conjunctiva Clear HENT: Yes: Atraumatic Cardiovascular: Yes: S1, S2 Respiratory: Yes: CTA Bilaterally Gastrointestinal: Yes: Soft, Hernia Genitourinary: Yes: WNL Musculoskeletal: Yes: WNL Edema: No Neurological: Yes: Oriented Psychiatric: Yes: Oriented Labs: CBC, BMP 11/02/17 07:00 11/02/17 07:00 Problem List - Problems (1) UTI (urinary tract infection) Code(s): N39.0 - URINARY TRACT INFECTION, SITE NOT SPECIFIED Qualifiers: Urinary tract infection type: site unspecified Hematuria presence: without hematuria Qualified Code(s): N39.0 - Urinary tract infection, site not specified (2) CKD (chronic kidney disease) Code(s): N18.9 - CHRONIC KIDNEY DISEASE, UNSPECIFIED Assessment/Plan Current Medications Generic Name Dose Route Start Last Admin Trade Name Freq PRN Reason Stop Dose Admin Acetaminophen 650 mg 11/01/17 17:26 Tylenol - PO Q6H PRN PAIN LEVEL 6-10 Albuterol/Ipratropium 1 amp 11/01/17 17:26 Duoneb - NEB Q6H PRN SHORTNESS OF BREATH Collagenase 1 applic 11/02/17 11:30 11/03/17 09:45 Santyl - TP 1 applic DAILY [facility] Administration Escitalopram Oxalate 10 mg 11/02/17 10:00 11/03/17 09:44 Lexapro - PO 10 mg DAILY [facility] Administration Furosemide 40 mg 11/02/17 10:00 11/03/17 09:44 Lasix - PO 40 mg DAILY [facility] Administration Heparin Sodium (Porcine) 5,000 unit 11/01/17 22:00 11/03/17 09:44 Heparin - SQ 5,000 unit BID [facility] Administration Ertapenem 1 gm/ Sodium 50 mls @ 50 mls/hr 11/02/17 10:00 11/03/17 09:44 Chloride IVPB 50 mls/hr DAILY [facility] Administration Protocol Nystatin 1 applic 11/02/17 10:00 11/03/17 09:44 Nystop Powder - TP 1 applic DAILY [facility] Administration Pantoprazole Sodium 40 mg 11/02/17 10:00 11/03/17 09:44 Protonix - PO 40 mg DAILY [facility] Administration Prednisone 40 mg 11/02/17 10:00 11/03/17 09:44 Deltasone - PO 40 mg DAILY [facility] Administration Valsartan 80 mg 11/02/17 10:00 11/03/17 09:44 Diovan - PO 80 mg DAILY [facility] Administration Impression 1. CKD 2. UTI 3. HTN 4. pleural effusion 5. CHF 6. hx smoking Plan - check bmp - check cbc - cont diovan - cont lasix - will need further workup and follow up after discharge
[2017-11-04 06:59] LABS: BASO % 0.4 % (0-2.0); EOS % 0.1 % (0-4.5); HEMATOCRIT 28.3 % (32.4-45.2); HEMOGLOBIN 9.2 GM/dL (10.7-15.3); LYMPH % 13.7 % (8-40); MCH 26.9 pg (25.7-33.7); MCHC 32.5 g/dl (32.0-36.0); MEAN CELL VOLUME 82.8 fl (80-96); MEAN PLT VOLUME 6.9 fl (7.5-11.1); MONO % 5.6 % (3.8-10.2); NEUT % 80.2 % (42.8-82.8); PLATELET COUNT 654 K/MM3 (134-434); RBC 3.42 M/mm3 (3.60-5.2); RDW 16.7 % (11.6-15.6); WHITE BLOOD COUNT 14.1 K/mm3 (4.0-10.0)
[2017-11-04 07:32] LABS: CALCIUM 8.5 mg/dL (8.5-10.1); CHLORIDE 105 mmol/L (98-107); POTASSIUM 3.7 mmol/L (3.5-5.1); SODIUM 145 mmol/L (136-145)
[2017-11-04 07:35] LABS: ANION GAP 9 (8-16); BLOOD UREA NITROGEN 27 mg/dL (7-18); CO2 31 mmol/L (21-32); CREATININE 1.5 mg/dL (0.55-1.02); GLUCOSE,RANDOM 101 mg/dL (74-106)
--- NOTE | 2017-11-04 08:51 | PN ---
Progress Note, Physician - Current Medication List Current Medications: Active Medications Acetaminophen (Tylenol -) 650 mg PO Q6H PRN PRN Reason: PAIN LEVEL 6-10 Albuterol/Ipratropium (Duoneb -) 1 amp NEB Q6H PRN PRN Reason: SHORTNESS OF BREATH Collagenase (Santyl -) 1 applic TP DAILY [facility] Last Admin: 11/03/17 09:45 Dose: 1 applic Escitalopram Oxalate (Lexapro -) 10 mg PO DAILY [facility] Last Admin: 11/03/17 09:44 Dose: 10 mg Furosemide (Lasix -) 40 mg PO DAILY [facility] Last Admin: 11/03/17 09:44 Dose: 40 mg Heparin Sodium (Porcine) (Heparin -) 5,000 unit SQ BID [facility] Last Admin: 11/03/17 22:27 Dose: 5,000 unit Ertapenem 1 gm/ Sodium (Chloride) 50 mls @ 50 mls/hr IVPB DAILY [facility] PRN Reason: Protocol Last Admin: 11/03/17 09:44 Dose: 50 mls/hr Nystatin (Nystop Powder -) 1 applic TP DAILY [facility] Last Admin: 11/03/17 09:44 Dose: 1 applic Pantoprazole Sodium (Protonix -) 40 mg PO DAILY [facility] Last Admin: 11/03/17 09:44 Dose: 40 mg Prednisone (Deltasone -) 40 mg PO DAILY [facility] Last Admin: 11/03/17 09:44 Dose: 40 mg Valsartan (Diovan -) 80 mg PO DAILY [facility] Last Admin: 11/03/17 09:44 Dose: 80 mg - Objective Vital Signs: Vital Signs Temperature 97.6 F 11/04/17 06:00 Pulse Rate 78 11/04/17 06:00 Respiratory Rate 20 11/04/17 06:00 Blood Pressure 162/86 11/04/17 06:00 O2 Sat by Pulse Oximetry (%) 96 11/03/17 21:00 Cardiovascular: Yes: Regular Rate and Rhythm Respiratory: Yes: Regular, CTA Bilaterally Gastrointestinal: Yes: Normal Bowel Sounds, Soft Labs: CBC, BMP 11/04/17 06:00 11/04/17 06:00 Problem List - Problems (1) CHF (congestive heart failure) Assessment/Plan: PO LASIX Code(s): I50.9 - HEART FAILURE, UNSPECIFIED (2) HTN (hypertension) Assessment/Plan: SAME MEDS Code(s): I10 - ESSENTIAL (PRIMARY) HYPERTENSION (3) ESBL (extended spectrum beta-lactamase) producing bacteria infection Assessment/Plan: ON ETRAPENEM ID ON CASE Code(s): A49.9 - BACTERIAL INFECTION, UNSPECIFIED; Z16.12 - EXTENDED SPECTRUM BETA LACTAMASE (ESBL) RESISTANCE (4) 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
--- NOTE | 2017-11-04 10:42 | PN ---
Progress Note (short form) - Note Progress Note: ID Ertepenem day 2 threrapy No complaints Selected Entries 11/04/17 06:00 Temperature 97.6 F Pulse Rate 78 Respiratory 20 Rate Blood Pressure 162/86 Microbiology 11/01/17 17:10 Urine - Urine Clean Catch Urine Culture - Preliminary Lactose Fermenting Neg Bacilli 11/01/17 14:40 Blood - Peripheral Venous Blood Culture - Preliminary NO GROWTH OBTAINED AFTER 48 HOURS, INCUBATION TO CONTINUE FOR 3 DAYS. 11/01/17 14:40 Blood - Peripheral Venous Blood Culture - Preliminary NO GROWTH OBTAINED AFTER 48 HOURS, INCUBATION TO CONTINUE FOR 3 DAYS. Laboratory Tests 11/01/17 11/02/17 11/02/17 14:40 07:00 07:30 WBC 19.9 H 14.4 H Hgb Hct Plt Count ESR BUN Creatinine C-Reactive Protein 10.8 H 11/03/17 11/04/17 11/04/17 06:00 06:00 06:00 WBC 14.1 H Hgb 9.2 L Hct 28.3 L Plt Count 654 H ESR 97 H BUN 27 H Creatinine 1.5 H C-Reactive Protein Assessment UTI elevated WBC ? UTI related History of ESBL Plan Continue antibiotic as ordered. Patient says she could not come back and forth to hospital for antibiotic Tatyana THRASHER Problem List - Problems (1) Infection due to multidrug resistant organism, newly diagnosed Code(s): Z16.24 - RESISTANCE TO MULTIPLE ANTIBIOTICS (2) UTI (urinary tract infection) Code(s): N39.0 - URINARY TRACT INFECTION, SITE NOT SPECIFIED Qualifiers: Urinary tract infection type: site unspecified Hematuria presence: without hematuria Qualified Code(s): N39.0 - Urinary tract infection, site not specified (3) Thrombocytosis Code(s): D47.3 - ESSENTIAL (HEMORRHAGIC) THROMBOCYTHEMIA
[2017-11-04] MEDS: COLLAGENASE CLOSTRIDIUM HIST. 30 GRAMS TUBE TP SCH (11:14)
[2017-11-04] MEDS: ERTAPENEM SODIUM 1 GM in SODIUM CHLORIDE 50 ML IVPB SCH (11:16)
[2017-11-04] MEDS: VALSARTAN 80 MG TABLET (UD) PO SCH (11:16)
[2017-11-04] MEDS: METOPROLOL TARTRATE 25 MG TABLET (FP) PO SCH ×2 (11:16→21:20)
[2017-11-04] MEDS: PANTOPRAZOLE 40 MG TABLET (FP) PO SCH (11:16)
[2017-11-04] MEDS: ESCITALOPRAM OXALATE 10 MG TABLET (FP) PO SCH (11:16)
[2017-11-04] MEDS: FUROSEMIDE 40 MG TABLET (FP) PO SCH (11:16)
[2017-11-04] MEDS: HEPARIN NA (PORCINE) 5,000 UNITS/ML 1ML VIAL SQ SCH ×2 (11:16→21:21)
[2017-11-04] MEDS: NYSTATIN POWDER 100,000 UNITS/GM - 15 GM TOPICAL POWDER TP SCH (11:17)
--- NOTE | 2017-11-04 13:23 | PN ---
Progress Note, Physician History of Present Illness: Pt seen and examined at bedside. She is awake and alert. She denies shortness of breath. - Current Medication List Current Medications: Active Medications Acetaminophen (Tylenol -) 650 mg PO Q6H PRN PRN Reason: PAIN LEVEL 6-10 Albuterol/Ipratropium (Duoneb -) 1 amp NEB Q6H PRN PRN Reason: SHORTNESS OF BREATH Collagenase (Santyl -) 1 applic TP DAILY [facility] Last Admin: 11/04/17 11:14 Dose: 1 applic Escitalopram Oxalate (Lexapro -) 10 mg PO DAILY [facility] Last Admin: 11/04/17 11:16 Dose: 10 mg Furosemide (Lasix -) 40 mg PO DAILY [facility] Last Admin: 11/04/17 11:16 Dose: 40 mg Heparin Sodium (Porcine) (Heparin -) 5,000 unit SQ BID [facility] Last Admin: 11/04/17 11:16 Dose: 5,000 unit Ertapenem 1 gm/ Sodium (Chloride) 50 mls @ 50 mls/hr IVPB DAILY [facility] PRN Reason: Protocol Last Admin: 11/04/17 11:16 Dose: 50 mls/hr Metoprolol Tartrate (Lopressor -) 12.5 mg PO BID [facility] Last Admin: 11/04/17 11:16 Dose: 12.5 mg Nystatin (Nystop Powder -) 1 applic TP DAILY [facility] Last Admin: 11/04/17 11:17 Dose: 1 applic Pantoprazole Sodium (Protonix -) 40 mg PO DAILY [facility] Last Admin: 11/04/17 11:16 Dose: 40 mg Valsartan (Diovan -) 80 mg PO DAILY [facility] Last Admin: 11/04/17 11:16 Dose: 80 mg - Objective Vital Signs: Vital Signs Temperature 97.4 F L 11/04/17 10:00 Pulse Rate 82 11/04/17 10:00 Respiratory Rate 18 11/04/17 10:00 Blood Pressure 173/82 11/04/17 10:00 O2 Sat by Pulse Oximetry (%) 96 11/03/17 21:00 Constitutional: Yes: Calm Eyes: Yes: Conjunctiva Clear HENT: Yes: Atraumatic Neck: Yes: Supple Cardiovascular: Yes: S1, S2 Respiratory: Yes: CTA Bilaterally Gastrointestinal: Yes: Soft Genitourinary: Yes: WNL Musculoskeletal: Yes: WNL Edema: No Neurological: Yes: Oriented Psychiatric: Yes: Oriented Labs: CBC, BMP 11/04/17 06:00 11/04/17 06:00 Problem List - Problems (1) UTI (urinary tract infection) Code(s): N39.0 - URINARY TRACT INFECTION, SITE NOT SPECIFIED Qualifiers: Urinary tract infection type: site unspecified Hematuria presence: without hematuria Qualified Code(s): N39.0 - Urinary tract infection, site not specified (2) CKD (chronic kidney disease) Code(s): N18.9 - CHRONIC KIDNEY DISEASE, UNSPECIFIED Assessment/Plan Current Medications Generic Name Dose Route Start Last Admin Trade Name Freq PRN Reason Stop Dose Admin Acetaminophen 650 mg 11/01/17 17:26 Tylenol - PO Q6H PRN PAIN LEVEL 6-10 Albuterol/Ipratropium 1 amp 11/01/17 17:26 Duoneb - NEB Q6H PRN SHORTNESS OF BREATH Collagenase 1 applic 11/02/17 11:30 11/04/17 11:14 Santyl - TP 1 applic DAILY [facility] Administration Escitalopram Oxalate 10 mg 11/02/17 10:00 11/04/17 11:16 Lexapro - PO 10 mg DAILY [facility] Administration Furosemide 40 mg 11/02/17 10:00 11/04/17 11:16 Lasix - PO 40 mg DAILY [facility] Administration Heparin Sodium (Porcine) 5,000 unit 11/01/17 22:00 11/04/17 11:16 Heparin - SQ 5,000 unit BID [facility] Administration Ertapenem 1 gm/ Sodium 50 mls @ 50 mls/hr 11/02/17 10:00 11/04/17 11:16 Chloride IVPB 50 mls/hr DAILY [facility] Administration Protocol Metoprolol Tartrate 12.5 mg 11/04/17 10:00 11/04/17 11:16 Lopressor - PO 12.5 mg BID [facility] Administration Nystatin 1 applic 11/02/17 10:00 11/04/17 11:17 Nystop Powder - TP 1 applic DAILY [facility] Administration Pantoprazole Sodium 40 mg 11/02/17 10:00 11/04/17 11:16 Protonix - PO 40 mg DAILY [facility] Administration Valsartan 80 mg 11/02/17 10:00 11/04/17 11:16 Diovan - PO 80 mg DAILY [facility] Administration Impression 1. CKD 2. UTI 3. HTN 4. pleural effusion 5. CHF 6. hx smoking Plan - renal function stable - cont abx - recommend renal workup as outpt - avoid nsaids - cont diovan - cont lasix - will follow PRN
--- NOTE | 2017-11-04 14:00 | PN ---
Progress Note, Physician History of Present Illness: pulmonary alert,no distress,-sob,-cough - Current Medication List Current Medications: Active Medications Acetaminophen (Tylenol -) 650 mg PO Q6H PRN PRN Reason: PAIN LEVEL 6-10 Albuterol/Ipratropium (Duoneb -) 1 amp NEB Q6H PRN PRN Reason: SHORTNESS OF BREATH Collagenase (Santyl -) 1 applic TP DAILY [facility] Last Admin: 11/04/17 11:14 Dose: 1 applic Escitalopram Oxalate (Lexapro -) 10 mg PO DAILY [facility] Last Admin: 11/04/17 11:16 Dose: 10 mg Furosemide (Lasix -) 40 mg PO DAILY [facility] Last Admin: 11/04/17 11:16 Dose: 40 mg Heparin Sodium (Porcine) (Heparin -) 5,000 unit SQ BID [facility] Last Admin: 11/04/17 11:16 Dose: 5,000 unit Ertapenem 1 gm/ Sodium (Chloride) 50 mls @ 50 mls/hr IVPB DAILY [facility] PRN Reason: Protocol Last Admin: 11/04/17 11:16 Dose: 50 mls/hr Metoprolol Tartrate (Lopressor -) 12.5 mg PO BID [facility] Last Admin: 11/04/17 11:16 Dose: 12.5 mg Nystatin (Nystop Powder -) 1 applic TP DAILY [facility] Last Admin: 11/04/17 11:17 Dose: 1 applic Pantoprazole Sodium (Protonix -) 40 mg PO DAILY [facility] Last Admin: 11/04/17 11:16 Dose: 40 mg Valsartan (Diovan -) 80 mg PO DAILY [facility] Last Admin: 11/04/17 11:16 Dose: 80 mg - Objective Vital Signs: Vital Signs Temperature 97.4 F L 11/04/17 10:00 Pulse Rate 82 11/04/17 10:00 Respiratory Rate 18 11/04/17 10:00 Blood Pressure 173/82 11/04/17 10:00 O2 Sat by Pulse Oximetry (%) 96 11/03/17 21:00 Constitutional: Yes: Well Nourished, Calm Eyes: Yes: Occular Prosthesis HENT: Yes: Nasal Congestion Neck: Yes: WNL Cardiovascular: Yes: Regular Rate and Rhythm, S1, S2 Respiratory: Yes: CTA Bilaterally Gastrointestinal: Yes: Normal Bowel Sounds, Soft Extremities: Yes: WNL Edema: No Labs: CBC, BMP 11/04/17 06:00 11/04/17 06:00 Problem List - Problems (1) Thrombocytosis Code(s): D47.3 - ESSENTIAL (HEMORRHAGIC) THROMBOCYTHEMIA (2) UTI (urinary tract infection) Code(s): N39.0 - URINARY TRACT INFECTION, SITE NOT SPECIFIED Qualifiers: Urinary tract infection type: site unspecified Hematuria presence: without hematuria Qualified Code(s): N39.0 - Urinary tract infection, site not specified Assessment/Plan Problem List - Problems (1) Pleural effusion Code(s): J90 - PLEURAL EFFUSION, NOT ELSEWHERE CLASSIFIED (2) UTI (urinary tract infection) Code(s): N39.0 - URINARY TRACT INFECTION, SITE NOT SPECIFIED (3) CHARLY (acute kidney injury) Code(s): N17.9 - ACUTE KIDNEY FAILURE, UNSPECIFIED (4) Anxiety Code(s): F41.9 - ANXIETY DISORDER, UNSPECIFIED Assessment/Plan inhaled bronochodilators lasix abx as per id monitor plt ct,cbc monitor adia OLSON
--- NOTE | 2017-11-05 08:20 | PN ---
Progress Note, Physician - Current Medication List Current Medications: Active Medications Acetaminophen (Tylenol -) 650 mg PO Q6H PRN PRN Reason: PAIN LEVEL 6-10 Albuterol/Ipratropium (Duoneb -) 1 amp NEB Q6H PRN PRN Reason: SHORTNESS OF BREATH Collagenase (Santyl -) 1 applic TP DAILY [facility] Last Admin: 11/04/17 11:14 Dose: 1 applic Escitalopram Oxalate (Lexapro -) 10 mg PO DAILY [facility] Last Admin: 11/04/17 11:16 Dose: 10 mg Furosemide (Lasix -) 40 mg PO DAILY [facility] Last Admin: 11/04/17 11:16 Dose: 40 mg Heparin Sodium (Porcine) (Heparin -) 5,000 unit SQ BID [facility] Last Admin: 11/04/17 21:21 Dose: 5,000 unit Ertapenem 1 gm/ Sodium (Chloride) 50 mls @ 50 mls/hr IVPB DAILY [facility] PRN Reason: Protocol Last Admin: 11/04/17 11:16 Dose: 50 mls/hr Metoprolol Tartrate (Lopressor -) 12.5 mg PO BID [facility] Last Admin: 11/04/17 21:20 Dose: 12.5 mg Nystatin (Nystop Powder -) 1 applic TP DAILY [facility] Last Admin: 11/04/17 11:17 Dose: 1 applic Pantoprazole Sodium (Protonix -) 40 mg PO DAILY [facility] Last Admin: 11/04/17 11:16 Dose: 40 mg Valsartan (Diovan -) 80 mg PO DAILY [facility] Last Admin: 11/04/17 11:16 Dose: 80 mg - Objective Vital Signs: Vital Signs Temperature 98.6 F 11/05/17 07:15 Pulse Rate 79 11/05/17 07:15 Respiratory Rate 18 11/05/17 07:15 Blood Pressure 173/77 11/05/17 07:15 O2 Sat by Pulse Oximetry (%) 96 11/04/17 21:00 Cardiovascular: Yes: S1, S2 Respiratory: Yes: Regular, CTA Bilaterally Gastrointestinal: Yes: Normal Bowel Sounds, Soft Labs: CBC, BMP 11/04/17 06:00 11/04/17 06:00 Problem List - Problems (1) CHF (congestive heart failure) Assessment/Plan: PO LASIX Code(s): I50.9 - HEART FAILURE, UNSPECIFIED (2) HTN (hypertension) Assessment/Plan: SAME MEDS Code(s): I10 - ESSENTIAL (PRIMARY) HYPERTENSION (3) ESBL (extended spectrum beta-lactamase) producing bacteria infection Assessment/Plan: ON ETRAPENEM ID ON CASE Code(s): A49.9 - BACTERIAL INFECTION, UNSPECIFIED; Z16.12 - EXTENDED SPECTRUM BETA LACTAMASE (ESBL) RESISTANCE (4) 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
[2017-11-05] MEDS: VALSARTAN 80 MG TABLET (UD) PO SCH (11:30)
[2017-11-05] MEDS: ERTAPENEM SODIUM 1 GM in SODIUM CHLORIDE 50 ML IVPB SCH (11:30)
[2017-11-05] MEDS: FUROSEMIDE 40 MG TABLET (FP) PO SCH (11:30)
[2017-11-05] MEDS: PANTOPRAZOLE 40 MG TABLET (FP) PO SCH (11:30)
[2017-11-05] MEDS: METOPROLOL TARTRATE 25 MG TABLET (FP) PO SCH ×2 (11:30→21:10)
[2017-11-05] MEDS: ESCITALOPRAM OXALATE 10 MG TABLET (FP) PO SCH (11:30)
[2017-11-05] MEDS: HEPARIN NA (PORCINE) 5,000 UNITS/ML 1ML VIAL SQ SCH ×2 (11:31→21:11)
[2017-11-05] MEDS: NYSTATIN POWDER 100,000 UNITS/GM - 15 GM TOPICAL POWDER TP SCH (11:32)
--- NOTE | 2017-11-05 11:52 | PN ---
Progress Note (short form) - Note Progress Note: Resting in NAD. No CP or SOB. Intake & Output 11/02/17 11/03/17 11/04/17 11/05/17 23:59 23:59 23:59 23:59 Intake Total 530 700 300 Balance 530 700 300 Weight 166 lb 8 oz 168 lb 169 lb 170 lb Last Vital Signs Temp Pulse Resp BP Pulse Ox 99.3 F 81 18 138/79 96 11/05/17 11:32 11/05/17 11:32 11/05/17 11:32 11/05/17 11:32 11/04/17 21:00 Active Medications Acetaminophen (Tylenol -) 650 mg PO Q6H PRN PRN Reason: PAIN LEVEL 6-10 Albuterol/Ipratropium (Duoneb -) 1 amp NEB Q6H PRN PRN Reason: SHORTNESS OF BREATH Collagenase (Santyl -) 1 applic TP DAILY [facility] Last Admin: 11/04/17 11:14 Dose: 1 applic Escitalopram Oxalate (Lexapro -) 10 mg PO DAILY [facility] Last Admin: 11/05/17 11:30 Dose: 10 mg Furosemide (Lasix -) 40 mg PO DAILY [facility] Last Admin: 11/05/17 11:30 Dose: 40 mg Heparin Sodium (Porcine) (Heparin -) 5,000 unit SQ BID [facility] Last Admin: 11/05/17 11:31 Dose: 5,000 unit Ertapenem 1 gm/ Sodium (Chloride) 50 mls @ 50 mls/hr IVPB DAILY [facility] PRN Reason: Protocol Last Admin: 11/05/17 11:30 Dose: 50 mls/hr Metoprolol Tartrate (Lopressor -) 12.5 mg PO BID [facility] Last Admin: 11/05/17 11:30 Dose: 12.5 mg Nystatin (Nystop Powder -) 1 applic TP DAILY [facility] Last Admin: 11/05/17 11:32 Dose: 1 applic Pantoprazole Sodium (Protonix -) 40 mg PO DAILY [facility] Last Admin: 11/05/17 11:30 Dose: 40 mg Valsartan (Diovan -) 80 mg PO DAILY [facility] Last Admin: 11/05/17 11:30 Dose: 80 mg Constitutional: Yes: NAD Eyes: Yes: Occular Prosthesis HENT: Yes: Nasal Congestion Neck: Yes: WNL Cardiovascular: Yes: Regular Rate and Rhythm, S1, S2 Respiratory: Yes: few scattered rhonchi Gastrointestinal: Yes: Normal Bowel Sounds, Soft Extremities: Yes: WNL Edema: No Labs: Problem List - Problems (1) Thrombocytosis Code(s): D47.3 - ESSENTIAL (HEMORRHAGIC) THROMBOCYTHEMIA (2) UTI (urinary tract infection) Code(s): N39.0 - URINARY TRACT INFECTION, SITE NOT SPECIFIED Qualifiers: Urinary tract infection type: site unspecified Hematuria presence: without hematuria Qualified Code(s): N39.0 - Urinary tract infection, site not specified (3) Pleural effusion Code(s): J90 - PLEURAL EFFUSION, NOT ELSEWHERE CLASSIFIED (4) CHARLY (acute kidney injury) Code(s): N17.9 - ACUTE KIDNEY FAILURE, UNSPECIFIED (5) Anxiety Code(s): F41.9 - ANXIETY DISORDER, UNSPECIFIED Assessment/Plan ABX per ID BD [place] PRN Supplemental O2 as needed [place] Ponce
--- NOTE | 2017-11-05 12:34 | CONSULT ---
- Consultation REQUESTING PROVIDER: CONSULT REQUEST: We have been asked to surgically evaluate this patient for pressure ulcer. PCP:[place] HISTORY OF PRESENT ILLNESS: The patient is a 67 yo female who presented to the hospital after being seen by her PMD for a chronic UTI treated with oral antibiotics. She has no urinary complaints. She was admitted early August for SOB and was intubated. Since then she has had a chronic sacral ulcer for which she does daily wound care at home. PMHx: HTN, pneumonia, pulmonary edema, abdominal hernia PSHx: left ankle fracture repair Home Medications Medication Instructions Recorded Acetaminophen [Tylenol .Regular 650 mg PO Q6H PRN tablet 09/04/17 Strength -] Escitalopram Oxalate [Lexapro -] 10 mg PO DAILY tablet 09/04/17 Furosemide [Lasix -] 40 mg PO DAILY tablet 09/04/17 Metoprolol Tartrate [Lopressor -] 12.5 mg PO BID tablet 09/04/17 Nystatin Powder [Nystop Powder -] 1 applic TP DAILY applic 09/04/17 Pantoprazole Sodium [Protonix -] 40 mg PO DAILY tablet.ec 09/04/17 Valsartan [Diovan] 40 mg PO DAILY tablet 09/04/17 predniSONE [Deltasone -] 40 mg PO DAILY tablet 09/04/17 Collagenase Clostridium Hist. 1 tube TD DAILY 11/01/17 [Santyl] Allergies Allergy/AdvReac Type Severity Reaction Status Date / Time No Known Allergies Allergy Verified 11/01/17 13:04 REVIEW OF SYSTEMS: CONSTITUTIONAL: Absent: fever, chills GENITOURINARY: Absent: dysuria, frequency PHYSICAL EXAM: GENERAL: Awake, alert, and fully oriented, in no acute distress. HEAD: Normal with no signs of trauma. ABDOMEN: Soft, nontender. Reducible umbilical hernia with firm mass. MUSCULOSKELETAL: Normal ROM at all joints. No bony deformities or tenderness. No CVA tenderness. LOWER EXTREMITIES: 2+ pulses, warm, well-perfused. No peripheral edema. SKIN: sacrum ulcer approx 1 x 1 cm. skin changes surrounding it without erythema. No purulent drainage Vital Signs Temperature 99.3 F 11/05/17 11:32 Pulse Rate 81 11/05/17 11:32 Respiratory Rate 18 11/05/17 11:32 Blood Pressure 138/79 11/05/17 11:32 O2 Sat by Pulse Oximetry (%) 96 11/04/17 21:00 Lab Results WBC 14.1 K/mm3 (4.0-10.0) H 11/04/17 06:00 RBC 3.42 M/mm3 (3.60-5.2) L 11/04/17 06:00 Hgb 9.2 GM/dL (10.7-15.3) L 11/04/17 06:00 Hct 28.3 % (32.4-45.2) L 11/04/17 06:00 MCV 82.8 fl (80-96) 11/04/17 06:00 MCHC 32.5 g/dl (32.0-36.0) 11/04/17 06:00 RDW 16.7 % (11.6-15.6) H 11/04/17 06:00 Plt Count 654 K/MM3 (134-434) H 11/04/17 06:00 Sodium 145 mmol/L (136-145) 11/04/17 06:00 Potassium 3.7 mmol/L (3.5-5.1) 11/04/17 06:00 Chloride 105 mmol/L (98-107) 11/04/17 06:00 Carbon Dioxide 31 mmol/L (21-32) 11/04/17 06:00 Anion Gap 9 (8-16) 11/04/17 06:00 BUN 27 mg/dL (7-18) H 11/04/17 06:00 Creatinine 1.5 mg/dL (0.55-1.02) H 11/04/17 06:00 Random Glucose 101 mg/dL (74-106) 11/04/17 06:00 Calcium 8.5 mg/dL (8.5-10.1) 11/04/17 06:00 Problem List - Problems (1) Decubitus ulcer Assessment/Plan: Pt with chronic ulcer since admission for CHF in . She was admitted for treatment of a UTI with IV antibiotics. The patient has been caring for her ulcer with local wound care while at rehab and now at home. Care D/w Dr. Hobbs, no surgical debridement needed a this time. Continue with santyl and will add allyven dressing. D/w the patient the need for frequent repositioning and care after bowel movement to keep the wound clean and pressure free. She may f/u with Dr. Hobbs as needed in the wound clinic for further care. Code(s): L89.90 - PRESSURE ULCER OF UNSPECIFIED SITE, UNSPECIFIED STAGE Qualifiers: Pressure ulcer location: sacral region Visit type - Case Type Case Type: ED Admission - Emergency Emergency Visit: Yes ED Registration Date: 11/01/17 Care time: The patient presented to the Emergency Department on the above date and was hospitalized for further evaluation of their emergent condition. - New patient This patient is new to me today: Yes Date on this admission: 11/05/17
--- NOTE | 2017-11-05 15:12 | PN ---
Progress Note, Physician History of Present Illness: Awake, alert Supine in bed No complaints Denies dysuria No suprapubic or flank pain Afebrile WBC improved - Current Medication List Current Medications: Active Medications Acetaminophen (Tylenol -) 650 mg PO Q6H PRN PRN Reason: PAIN LEVEL 6-10 Albuterol/Ipratropium (Duoneb -) 1 amp NEB Q6H PRN PRN Reason: SHORTNESS OF BREATH Collagenase (Santyl -) 1 applic TP DAILY [facility] Last Admin: 11/04/17 11:14 Dose: 1 applic Escitalopram Oxalate (Lexapro -) 10 mg PO DAILY [facility] Last Admin: 11/05/17 11:30 Dose: 10 mg Furosemide (Lasix -) 40 mg PO DAILY [facility] Last Admin: 11/05/17 11:30 Dose: 40 mg Heparin Sodium (Porcine) (Heparin -) 5,000 unit SQ BID [facility] Last Admin: 11/05/17 11:31 Dose: 5,000 unit Ertapenem 1 gm/ Sodium (Chloride) 50 mls @ 50 mls/hr IVPB DAILY [facility] PRN Reason: Protocol Last Admin: 11/05/17 11:30 Dose: 50 mls/hr Metoprolol Tartrate (Lopressor -) 12.5 mg PO BID [facility] Last Admin: 11/05/17 11:30 Dose: 12.5 mg Nystatin (Nystop Powder -) 1 applic TP DAILY [facility] Last Admin: 11/05/17 11:32 Dose: 1 applic Pantoprazole Sodium (Protonix -) 40 mg PO DAILY [facility] Last Admin: 11/05/17 11:30 Dose: 40 mg Valsartan (Diovan -) 80 mg PO DAILY [facility] Last Admin: 11/05/17 11:30 Dose: 80 mg - Objective Vital Signs: Vital Signs Temperature 99.3 F 11/05/17 11:32 Pulse Rate 81 11/05/17 11:32 Respiratory Rate 18 11/05/17 11:32 Blood Pressure 138/79 11/05/17 11:32 O2 Sat by Pulse Oximetry (%) 96 11/05/17 10:00 Constitutional: Yes: No Distress Eyes: Yes: Conjunctiva Clear Cardiovascular: Yes: Regular Rate and Rhythm, S1, S2 Respiratory: Yes: CTA Bilaterally Gastrointestinal: Yes: Normal Bowel Sounds, Soft. No: Tenderness Labs: CBC, BMP 11/04/17 06:00 11/04/17 06:00 Assessment/Plan UTI Hx ESBL Leukocytosis Azotemia Continue ertapenem
[2017-11-05] MEDS: COLLAGENASE CLOSTRIDIUM HIST. 30 GRAMS TUBE TP SCH (19:03)
[2017-11-06 08:10] LABS: CHLORIDE 103 mmol/L (98-107); POTASSIUM 3.7 mmol/L (3.5-5.1); SODIUM 142 mmol/L (136-145)
--- NOTE | 2017-11-06 08:14 | PN ---
Progress Note, Physician - Current Medication List Current Medications: Active Medications Acetaminophen (Tylenol -) 650 mg PO Q6H PRN PRN Reason: PAIN LEVEL 6-10 Albuterol/Ipratropium (Duoneb -) 1 amp NEB Q6H PRN PRN Reason: SHORTNESS OF BREATH Collagenase (Santyl -) 1 applic TP DAILY [facility] Last Admin: 11/05/17 19:03 Dose: 1 applic Escitalopram Oxalate (Lexapro -) 10 mg PO DAILY [facility] Last Admin: 11/05/17 11:30 Dose: 10 mg Furosemide (Lasix -) 40 mg PO DAILY [facility] Last Admin: 11/05/17 11:30 Dose: 40 mg Heparin Sodium (Porcine) (Heparin -) 5,000 unit SQ BID [facility] Last Admin: 11/05/17 21:11 Dose: 5,000 unit Ertapenem 1 gm/ Sodium (Chloride) 50 mls @ 50 mls/hr IVPB DAILY [facility] PRN Reason: Protocol Last Admin: 11/05/17 11:30 Dose: 50 mls/hr Metoprolol Tartrate (Lopressor -) 12.5 mg PO BID [facility] Last Admin: 11/05/17 21:10 Dose: 12.5 mg Nystatin (Nystop Powder -) 1 applic TP DAILY [facility] Last Admin: 11/05/17 11:32 Dose: 1 applic Pantoprazole Sodium (Protonix -) 40 mg PO DAILY [facility] Last Admin: 11/05/17 11:30 Dose: 40 mg Valsartan (Diovan -) 80 mg PO DAILY [facility] Last Admin: 11/05/17 11:30 Dose: 80 mg - Objective Vital Signs: Vital Signs Temperature 98.4 F 11/06/17 06:00 Pulse Rate 79 11/06/17 06:00 Respiratory Rate 20 11/06/17 06:00 Blood Pressure 153/73 11/06/17 06:00 O2 Sat by Pulse Oximetry (%) 96 11/05/17 21:00 Cardiovascular: Yes: S1, S2 Respiratory: Yes: Regular, CTA Bilaterally Gastrointestinal: Yes: Normal Bowel Sounds, Soft Labs: CBC, BMP 11/04/17 06:00 Problem List - Problems (1) CHF (congestive heart failure) Assessment/Plan: PO LASIX Code(s): I50.9 - HEART FAILURE, UNSPECIFIED (2) HTN (hypertension) Assessment/Plan: SAME MEDS Code(s): I10 - ESSENTIAL (PRIMARY) HYPERTENSION (3) ESBL (extended spectrum beta-lactamase) producing bacteria infection Assessment/Plan: ON ETRAPENEM ID ON CASE Code(s): A49.9 - BACTERIAL INFECTION, UNSPECIFIED; Z16.12 - EXTENDED SPECTRUM BETA LACTAMASE (ESBL) RESISTANCE (4) 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
[2017-11-06 08:20] LABS: ANION GAP 5 (8-16); BLOOD UREA NITROGEN 21 mg/dL (7-18); CALCIUM 8.2 mg/dL (8.5-10.1); CO2 34 mmol/L (21-32); CREATININE 1.4 mg/dL (0.55-1.02); GLUCOSE,RANDOM 101 mg/dL (74-106)
[2017-11-06 09:16] LABS: HEMATOCRIT 30.6 % (32.4-45.2); HEMOGLOBIN 9.8 GM/dL (10.7-15.3); MCH 26.8 pg (25.7-33.7); MCHC 32.1 g/dl (32.0-36.0); MEAN CELL VOLUME 83.4 fl (80-96); MEAN PLT VOLUME 6.9 fl (7.5-11.1); PLATELET COUNT 586 K/MM3 (134-434); RBC 3.67 M/mm3 (3.60-5.2); RDW 16.8 % (11.6-15.6); WHITE BLOOD COUNT 14.1 K/mm3 (4.0-10.0)
[2017-11-06] MEDS ORDERED: PT OWN MED DRAWER 7, Y5N ONE (09:55)
[2017-11-06] MEDS: HEPARIN NA (PORCINE) 5,000 UNITS/ML 1ML VIAL SQ SCH ×2 (10:05→21:40)
[2017-11-06] MEDS: ERTAPENEM SODIUM 1 GM in SODIUM CHLORIDE 50 ML IVPB SCH (10:05)
[2017-11-06] MEDS: VALSARTAN 80 MG TABLET (UD) PO SCH (10:05)
[2017-11-06] MEDS: PANTOPRAZOLE 40 MG TABLET (FP) PO SCH (10:06)
[2017-11-06] MEDS: ESCITALOPRAM OXALATE 10 MG TABLET (FP) PO SCH (10:06)
[2017-11-06] MEDS: FUROSEMIDE 40 MG TABLET (FP) PO SCH (10:06)
[2017-11-06] MEDS: METOPROLOL TARTRATE 25 MG TABLET (FP) PO SCH ×2 (10:06→21:41)
[2017-11-06 10:21] LABS: PLATELET ESTIMATE INCREASED
--- NOTE | 2017-11-06 12:15 | PN ---
Progress Note (short form) - Note Progress Note: PULMONARY Denies shortness of breath, cough or chest pain. No fevers or chills. Last Vital Signs Temp Pulse Resp BP Pulse Ox 98.4 F 79 20 153/73 96 11/06/17 06:00 11/06/17 06:00 11/06/17 06:00 11/06/17 06:00 11/05/17 21:00 Gen: NAD at rest Heart: RRR Lung: decreased breath sounds at the bases Abd: soft, nontender Ext: no edema CBC, BMP 11/06/17 06:30 11/06/17 06:20 Active Medications Acetaminophen (Tylenol -) 650 mg PO Q6H PRN PRN Reason: PAIN LEVEL 6-10 Albuterol/Ipratropium (Duoneb -) 1 amp NEB Q6H PRN PRN Reason: SHORTNESS OF BREATH Collagenase (Santyl -) 1 applic TP DAILY [facility] Last Admin: 11/05/17 19:03 Dose: 1 applic Escitalopram Oxalate (Lexapro -) 10 mg PO DAILY [facility] Last Admin: 11/06/17 10:06 Dose: 10 mg Furosemide (Lasix -) 40 mg PO DAILY [facility] Last Admin: 11/06/17 10:06 Dose: 40 mg Heparin Sodium (Porcine) (Heparin -) 5,000 unit SQ BID [facility] Last Admin: 11/06/17 10:05 Dose: 5,000 unit Ertapenem 1 gm/ Sodium (Chloride) 50 mls @ 50 mls/hr IVPB DAILY [facility] PRN Reason: Protocol Last Admin: 11/06/17 10:05 Dose: 50 mls/hr Metoprolol Tartrate (Lopressor -) 12.5 mg PO BID [facility] Last Admin: 11/06/17 10:06 Dose: 12.5 mg Nystatin (Nystop Powder -) 1 applic TP DAILY [facility] Last Admin: 11/05/17 11:32 Dose: 1 applic Pantoprazole Sodium (Protonix -) 40 mg PO DAILY [facility] Last Admin: 11/06/17 10:06 Dose: 40 mg Valsartan (Diovan -) 80 mg PO DAILY [facility] Last Admin: 11/06/17 10:05 Dose: 80 mg A/P ESBL E Coli UTI Acute Kidney Injury improving Pleural Effusion LV Diastolic Dysfunction - continue antibiotics - continue lasix, beta al - monitor urine output, creatinine - repeat CXR today - DVT prophylaxis
--- NOTE | 2017-11-06 13:21 | PN ---
Progress Note, Physician History of Present Illness: Pt seen and examined at bedside. She has no complaints. - Current Medication List Current Medications: Active Medications Acetaminophen (Tylenol -) 650 mg PO Q6H PRN PRN Reason: PAIN LEVEL 6-10 Albuterol/Ipratropium (Duoneb -) 1 amp NEB Q6H PRN PRN Reason: SHORTNESS OF BREATH Collagenase (Santyl -) 1 applic TP DAILY [facility] Last Admin: 11/05/17 19:03 Dose: 1 applic Escitalopram Oxalate (Lexapro -) 10 mg PO DAILY [facility] Last Admin: 11/06/17 10:06 Dose: 10 mg Furosemide (Lasix -) 40 mg PO DAILY [facility] Last Admin: 11/06/17 10:06 Dose: 40 mg Heparin Sodium (Porcine) (Heparin -) 5,000 unit SQ BID [facility] Last Admin: 11/06/17 10:05 Dose: 5,000 unit Ertapenem 1 gm/ Sodium (Chloride) 50 mls @ 50 mls/hr IVPB DAILY [facility] PRN Reason: Protocol Last Admin: 11/06/17 10:05 Dose: 50 mls/hr Metoprolol Tartrate (Lopressor -) 12.5 mg PO BID [facility] Last Admin: 11/06/17 10:06 Dose: 12.5 mg Nystatin (Nystop Powder -) 1 applic TP DAILY [facility] Last Admin: 11/05/17 11:32 Dose: 1 applic Pantoprazole Sodium (Protonix -) 40 mg PO DAILY [facility] Last Admin: 11/06/17 10:06 Dose: 40 mg Valsartan (Diovan -) 80 mg PO DAILY [facility] Last Admin: 11/06/17 10:05 Dose: 80 mg - Objective Vital Signs: Vital Signs Temperature 98.4 F 11/06/17 06:00 Pulse Rate 79 11/06/17 06:00 Respiratory Rate 20 11/06/17 06:00 Blood Pressure 153/73 11/06/17 06:00 O2 Sat by Pulse Oximetry (%) 96 11/05/17 21:00 Constitutional: Yes: Calm Eyes: Yes: Conjunctiva Clear HENT: Yes: Atraumatic Neck: Yes: Supple Cardiovascular: Yes: S1, S2 Respiratory: Yes: CTA Bilaterally Gastrointestinal: Yes: Soft Genitourinary: Yes: WNL Musculoskeletal: Yes: WNL Edema: No Neurological: Yes: Oriented Psychiatric: Yes: Oriented Labs: CBC, BMP 11/06/17 06:30 11/06/17 06:20 Problem List - Problems (1) UTI (urinary tract infection) Code(s): N39.0 - URINARY TRACT INFECTION, SITE NOT SPECIFIED Qualifiers: Urinary tract infection type: site unspecified Hematuria presence: without hematuria Qualified Code(s): N39.0 - Urinary tract infection, site not specified (2) CKD (chronic kidney disease) Code(s): N18.9 - CHRONIC KIDNEY DISEASE, UNSPECIFIED Assessment/Plan Current Medications Generic Name Dose Route Start Last Admin Trade Name Freq PRN Reason Stop Dose Admin Acetaminophen 650 mg 11/01/17 17:26 Tylenol - PO Q6H PRN PAIN LEVEL 6-10 Albuterol/Ipratropium 1 amp 11/01/17 17:26 Duoneb - NEB Q6H PRN SHORTNESS OF BREATH Collagenase 1 applic 11/02/17 11:30 11/05/17 19:03 Santyl - TP 1 applic DAILY [facility] Administration Escitalopram Oxalate 10 mg 11/02/17 10:00 11/06/17 10:06 Lexapro - PO 10 mg DAILY [facility] Administration Furosemide 40 mg 11/02/17 10:00 11/06/17 10:06 Lasix - PO 40 mg DAILY [facility] Administration Heparin Sodium (Porcine) 5,000 unit 11/01/17 22:00 11/06/17 10:05 Heparin - SQ 5,000 unit BID [facility] Administration Ertapenem 1 gm/ Sodium 50 mls @ 50 mls/hr 11/02/17 10:00 11/06/17 10:05 Chloride IVPB 50 mls/hr DAILY [facility] Administration Protocol Metoprolol Tartrate 12.5 mg 11/04/17 10:00 11/06/17 10:06 Lopressor - PO 12.5 mg BID [facility] Administration Nystatin 1 applic 11/02/17 10:00 11/05/17 11:32 Nystop Powder - TP 1 applic DAILY [facility] Administration Pantoprazole Sodium 40 mg 11/02/17 10:00 11/06/17 10:06 Protonix - PO 40 mg DAILY [facility] Administration Valsartan 80 mg 11/02/17 10:00 11/06/17 10:05 Diovan - PO 80 mg DAILY [facility] Administration Impression 1. CKD 2. UTI 3. HTN 4. pleural effusion 5. CHF 6. hx smoking Plan - labs reviewed - cont lasix and diovan - cont abx per ID - recommend renal workup as outpt - avoid nsaids - will follow PRN
[2017-11-06] MEDS: NYSTATIN POWDER 100,000 UNITS/GM - 15 GM TOPICAL POWDER TP SCH (18:37)
[2017-11-06] MEDS: COLLAGENASE CLOSTRIDIUM HIST. 30 GRAMS TUBE TP SCH (18:38)
[2017-11-07] MEDS ORDERED: PT OWN MED DRAWER 7, Y5N ONE (10:04)
--- NOTE | 2017-11-07 10:06 | PN ---
Progress Note (short form) - Note Progress Note: Resting in NAD on RA. Some minimal, intermittent dry cough. No CP or SOB. Intake & Output 11/04/17 11/05/17 11/06/17 11/07/17 23:59 23:59 23:59 23:59 Intake Total 300 350 450 Balance 300 350 450 Weight 169 lb 170 lb 167 lb 9.6 oz Last Vital Signs Temp Pulse Resp BP Pulse Ox 98.3 F 78 20 154/81 95 11/07/17 06:00 11/07/17 06:00 11/07/17 06:00 11/07/17 06:00 11/06/17 21:00 Active Medications Acetaminophen (Tylenol -) 650 mg PO Q6H PRN PRN Reason: PAIN LEVEL 6-10 Collagenase (Santyl -) 1 applic TP DAILY [facility] Last Admin: 11/06/17 18:38 Dose: 1 applic Escitalopram Oxalate (Lexapro -) 10 mg PO DAILY [facility] Last Admin: 11/06/17 10:06 Dose: 10 mg Furosemide (Lasix -) 40 mg PO DAILY [facility] Last Admin: 11/06/17 10:06 Dose: 40 mg Heparin Sodium (Porcine) (Heparin -) 5,000 unit SQ BID [facility] Last Admin: 11/06/17 21:40 Dose: 5,000 unit Ertapenem 1 gm/ Sodium (Chloride) 50 mls @ 50 mls/hr IVPB DAILY [facility] PRN Reason: Protocol Last Admin: 11/06/17 10:05 Dose: 50 mls/hr Metoprolol Tartrate (Lopressor -) 12.5 mg PO BID [facility] Last Admin: 11/06/17 21:41 Dose: 12.5 mg Nystatin (Nystop Powder -) 1 applic TP DAILY [facility] Last Admin: 11/06/17 18:37 Dose: 1 applic Pantoprazole Sodium (Protonix -) 40 mg PO DAILY [facility] Last Admin: 11/06/17 10:06 Dose: 40 mg Valsartan (Diovan -) 80 mg PO DAILY [facility] Last Admin: 11/06/17 10:05 Dose: 80 mg Constitutional: Yes: NAD Eyes: Yes: Occular Prosthesis HENT: Yes: Nasal Congestion Neck: Yes: WNL Cardiovascular: Yes: Regular Rate and Rhythm, S1, S2 Respiratory: Yes: few scattered rhonchi Gastrointestinal: Yes: Normal Bowel Sounds, Soft Extremities: Yes: WNL Edema: No Labs: Laboratory Results - last 24 hr 11/06/17 06:30 Neutrophils % (Manual) 81.4 Band Neutrophils % 1.0 Lymphocytes % (Manual) 9.3 Monocytes % (Manual) 2 L Eosinophils % (Manual) 3.1 Basophils % (Manual) 0.0 Myelocytes % (Man) 2 Promyelocytes % (Man) 0 Blast Cells % (Manual) 0 Nucleated RBC % 0 Metamyelocytes 1 Platelet Estimate Increased Stomatocytes 2+ Problem List - Problems (1) Thrombocytosis Code(s): D47.3 - ESSENTIAL (HEMORRHAGIC) THROMBOCYTHEMIA (2) UTI (urinary tract infection) Code(s): N39.0 - URINARY TRACT INFECTION, SITE NOT SPECIFIED Qualifiers: Urinary tract infection type: site unspecified Hematuria presence: without hematuria Qualified Code(s): N39.0 - Urinary tract infection, site not specified (3) Pleural effusion Code(s): J90 - PLEURAL EFFUSION, NOT ELSEWHERE CLASSIFIED (4) CHARLY (acute kidney injury) Code(s): N17.9 - ACUTE KIDNEY FAILURE, UNSPECIFIED (5) Anxiety Code(s): F41.9 - ANXIETY DISORDER, UNSPECIFIED Assessment/Plan ABX per ID BD TX PRN Supplemental O2 as needed Lasix No Pulmonary contraindication for D/C Dr Ponce
[2017-11-07] MEDS: VALSARTAN 80 MG TABLET (UD) PO SCH (10:14)
[2017-11-07] MEDS: FUROSEMIDE 40 MG TABLET (FP) PO SCH (10:14)
[2017-11-07] MEDS: HEPARIN NA (PORCINE) 5,000 UNITS/ML 1ML VIAL SQ SCH ×2 (10:14→21:34)
[2017-11-07] MEDS: ERTAPENEM SODIUM 1 GM in SODIUM CHLORIDE 50 ML IVPB SCH (10:14)
[2017-11-07] MEDS: METOPROLOL TARTRATE 25 MG TABLET (FP) PO SCH ×2 (10:15→21:34)
[2017-11-07] MEDS: PANTOPRAZOLE 40 MG TABLET (FP) PO SCH (10:15)
[2017-11-07] MEDS: ESCITALOPRAM OXALATE 10 MG TABLET (FP) PO SCH (10:15)
[2017-11-07] MEDS: COLLAGENASE CLOSTRIDIUM HIST. 30 GRAMS TUBE TP SCH (10:22)
[2017-11-07] MEDS: NYSTATIN POWDER 100,000 UNITS/GM - 15 GM TOPICAL POWDER TP SCH (10:22)
--- NOTE | 2017-11-07 12:49 | PN ---
Progress Note, Physician Chief Complaint: patient in contact isolation on ertrapenem for esbl - Current Medication List Current Medications: Active Medications Acetaminophen (Tylenol -) 650 mg PO Q6H PRN PRN Reason: PAIN LEVEL 6-10 Collagenase (Santyl -) 1 applic TP DAILY [facility] Last Admin: 11/07/17 10:22 Dose: 1 applic Escitalopram Oxalate (Lexapro -) 10 mg PO DAILY [facility] Last Admin: 11/07/17 10:15 Dose: 10 mg Furosemide (Lasix -) 40 mg PO DAILY [facility] Last Admin: 11/07/17 10:14 Dose: 40 mg Heparin Sodium (Porcine) (Heparin -) 5,000 unit SQ BID [facility] Last Admin: 11/07/17 10:14 Dose: 5,000 unit Ertapenem 1 gm/ Sodium (Chloride) 50 mls @ 50 mls/hr IVPB DAILY [facility] PRN Reason: Protocol Last Admin: 11/07/17 10:14 Dose: 50 mls/hr Metoprolol Tartrate (Lopressor -) 12.5 mg PO BID [facility] Last Admin: 11/07/17 10:15 Dose: 12.5 mg Nystatin (Nystop Powder -) 1 applic TP DAILY [facility] Last Admin: 11/07/17 10:22 Dose: 1 applic Pantoprazole Sodium (Protonix -) 40 mg PO DAILY [facility] Last Admin: 11/07/17 10:15 Dose: 40 mg Valsartan (Diovan -) 80 mg PO DAILY [facility] Last Admin: 11/07/17 10:14 Dose: 80 mg - Objective Vital Signs: Vital Signs Temperature 98.3 F 11/07/17 06:00 Pulse Rate 78 11/07/17 06:00 Respiratory Rate 20 11/07/17 06:00 Blood Pressure 154/81 11/07/17 06:00 O2 Sat by Pulse Oximetry (%) 95 11/06/17 21:00 Constitutional: Yes: Calm, Thin Cardiovascular: Yes: Regular Rate and Rhythm, S1, S2 Respiratory: Yes: CTA Bilaterally Gastrointestinal: Yes: Normal Bowel Sounds, Soft Edema: No Neurological: Yes: Alert, Oriented Labs: CBC, BMP 11/06/17 06:30 11/06/17 06:20 Problem List - Problems (1) ESBL (extended spectrum beta-lactamase) producing bacteria infection Assessment/Plan: on ertrapenem duration of iv abx per ID leukocytosis Code(s): A49.9 - BACTERIAL INFECTION, UNSPECIFIED; Z16.12 - EXTENDED SPECTRUM BETA LACTAMASE (ESBL) RESISTANCE (2) Decubitus ulcer Assessment/Plan: seen by vascular frequent turn and positioning dvt ppx Code(s): L89.90 - PRESSURE ULCER OF UNSPECIFIED SITE, UNSPECIFIED STAGE Qualifiers: Pressure ulcer location: sacral region (3) Pleural effusion Assessment/Plan: lasix oxygen via NC Code(s): J90 - PLEURAL EFFUSION, NOT ELSEWHERE CLASSIFIED
--- NOTE | 2017-11-07 13:34 | PN ---
Progress Note, Physician History of Present Illness: Awake, alert Supine in bed No complaints Denies dysuria No suprapubic or flank pain Afebrile WBC improved - Current Medication List Current Medications: Active Medications Acetaminophen (Tylenol -) 650 mg PO Q6H PRN PRN Reason: PAIN LEVEL 6-10 Collagenase (Santyl -) 1 applic TP DAILY [facility] Last Admin: 11/07/17 10:22 Dose: 1 applic Escitalopram Oxalate (Lexapro -) 10 mg PO DAILY [facility] Last Admin: 11/07/17 10:15 Dose: 10 mg Furosemide (Lasix -) 40 mg PO DAILY [facility] Last Admin: 11/07/17 10:14 Dose: 40 mg Heparin Sodium (Porcine) (Heparin -) 5,000 unit SQ BID [facility] Last Admin: 11/07/17 10:14 Dose: 5,000 unit Ertapenem 1 gm/ Sodium (Chloride) 50 mls @ 50 mls/hr IVPB DAILY [facility] PRN Reason: Protocol Last Admin: 11/07/17 10:14 Dose: 50 mls/hr Metoprolol Tartrate (Lopressor -) 12.5 mg PO BID [facility] Last Admin: 11/07/17 10:15 Dose: 12.5 mg Nystatin (Nystop Powder -) 1 applic TP DAILY [facility] Last Admin: 11/07/17 10:22 Dose: 1 applic Pantoprazole Sodium (Protonix -) 40 mg PO DAILY [facility] Last Admin: 11/07/17 10:15 Dose: 40 mg Valsartan (Diovan -) 80 mg PO DAILY [facility] Last Admin: 11/07/17 10:14 Dose: 80 mg - Objective Vital Signs: Vital Signs Temperature 98.3 F 11/07/17 10:00 Pulse Rate 76 11/07/17 10:00 Respiratory Rate 18 11/07/17 10:00 Blood Pressure 144/70 11/07/17 10:00 O2 Sat by Pulse Oximetry (%) 94 L 11/07/17 09:00 Constitutional: Yes: No Distress Cardiovascular: Yes: Regular Rate and Rhythm, S1, S2 Respiratory: Yes: CTA Bilaterally Gastrointestinal: Yes: Normal Bowel Sounds, Soft. No: Tenderness Edema: No Labs: CBC, BMP 11/06/17 06:30 11/06/17 06:20 Assessment/Plan UTI Hx ESBL Leukocytosis Azotemia Day #6 ertapenem. Complete 7d course then observe off
[2017-11-08 07:49] LABS: BASO % 1.3 % (0-2.0); EOS % 1.7 % (0-4.5); HEMATOCRIT 29.2 % (32.4-45.2); HEMOGLOBIN 9.7 GM/dL (10.7-15.3); LYMPH % 9.1 % (8-40); MCH 27.4 pg (25.7-33.7); MCHC 33.1 g/dl (32.0-36.0); MEAN CELL VOLUME 82.8 fl (80-96); MEAN PLT VOLUME 6.9 fl (7.5-11.1); MONO % 5.6 % (3.8-10.2); NEUT % 82.3 % (42.8-82.8); PLATELET COUNT 521 K/MM3 (134-434); RBC 3.53 M/mm3 (3.60-5.2); RDW 17.3 % (11.6-15.6); WHITE BLOOD COUNT 13.6 K/mm3 (4.0-10.0)
[2017-11-08 08:20] LABS: ALBUMIN 2.3 g/dl (3.4-5.0); ANION GAP 8 (8-16); BLOOD UREA NITROGEN 21 mg/dL (7-18); CALCIUM 8.4 mg/dL (8.5-10.1); CHLORIDE 101 mmol/L (98-107); CO2 33 mmol/L (21-32); CREATININE 1.4 mg/dL (0.55-1.02); GLUCOSE,RANDOM 108 mg/dL (74-106); POTASSIUM 3.6 mmol/L (3.5-5.1); SGOT/AST 14 U/L (15-37); SGPT/ALT < 6 U/L (12-78); SODIUM 142 mmol/L (136-145)
[2017-11-08 08:21] LABS: ALK PHOS 65 U/L (45-117); BILIRUBIN,TOTAL 0.4 mg/dL (0.2-1.0); TOT PROT 6.5 g/dl (6.4-8.2)
--- NOTE | 2017-11-08 08:49 | DS ---
Physical Examination Vital Signs: Vital Signs Temperature 98.7 F 11/08/17 06:00 Pulse Rate 84 11/08/17 06:00 Respiratory Rate 20 11/08/17 06:00 Blood Pressure 133/79 11/08/17 06:00 O2 Sat by Pulse Oximetry (%) 94 L 11/07/17 21:00 Findings/Remarks: DOING BETTER NO COMPLAINTS Cardiovascular: Yes: Regular Rate and Rhythm Respiratory: Yes: Regular, CTA Bilaterally Gastrointestinal: Yes: Normal Bowel Sounds, Soft. No: Tenderness Labs: CBC, BMP 11/08/17 07:10 11/08/17 06:50 Discharge Summary Reason For Visit: UTI Current Active Problems CHF (congestive heart failure) (Acute) Decubitus ulcer (Acute) ESBL (extended spectrum beta-lactamase) producing bacteria infection (Acute) HTN (hypertension) (Acute) Infection due to multidrug resistant organism, newly diagnosed (Acute) Pleural effusion (Acute) Thrombocytosis (Acute) UTI (urinary tract infection) (Acute) UTI (urinary tract infection) (Acute) Hospital Course: - Problems (1) ESBL (extended spectrum beta-lactamase) producing bacteria infection Assessment/Plan: on ertrapenem DAY 7 leukocytosis improved Code(s): A49.9 - BACTERIAL INFECTION, UNSPECIFIED; Z16.12 - EXTENDED SPECTRUM BETA LACTAMASE (ESBL) RESISTANCE (2) Decubitus ulcer Assessment/Plan: seen by vascular frequent turn and positioning dvt ppx santyl Code(s): L89.90 - PRESSURE ULCER OF UNSPECIFIED SITE, UNSPECIFIED STAGE Qualifiers: Pressure ulcer location: sacral region (3) Pleural effusion Assessment/Plan: lasix Code(s): J90 - PLEURAL EFFUSION, NOT ELSEWHERE CLASSIFIED Condition: Improved - Instructions Referrals: Margaret Taylor MD [Primary Care Provider] - Disposition: VNS/HOME HEALTH CARE - Home Medications Comprehensive Discharge Medication List: Ambulatory Orders Acetaminophen [Tylenol .Regular Strength -] 650 mg PO Q6H PRN tablet 09/04/17 Escitalopram Oxalate [Lexapro -] 10 mg PO DAILY tablet 09/04/17 Furosemide [Lasix -] 40 mg PO DAILY tablet 09/04/17 Metoprolol Tartrate [Lopressor -] 12.5 mg PO BID tablet 09/04/17 Nystatin Powder [Nystop Powder -] 1 applic TP DAILY applic 09/04/17 Pantoprazole Sodium [Protonix -] 40 mg PO DAILY tablet.ec 09/04/17 Collagenase Clostridium Hist. [Santyl] 1 tube TD DAILY 11/01/17 Valsartan [Diovan] 80 mg PO DAILY #30 tablet 11/08/17
[2017-11-08] MEDS: ESCITALOPRAM OXALATE 10 MG TABLET (FP) PO SCH (09:47)
[2017-11-08] MEDS: VALSARTAN 80 MG TABLET (UD) PO SCH (09:47)
[2017-11-08] MEDS: METOPROLOL TARTRATE 25 MG TABLET (FP) PO SCH (09:47)
[2017-11-08] MEDS: ERTAPENEM SODIUM 1 GM in SODIUM CHLORIDE 50 ML IVPB SCH (09:47)
[2017-11-08] MEDS: HEPARIN NA (PORCINE) 5,000 UNITS/ML 1ML VIAL SQ SCH (09:47)
[2017-11-08] MEDS: PANTOPRAZOLE 40 MG TABLET (FP) PO SCH (09:47)
[2017-11-08] MEDS: FUROSEMIDE 40 MG TABLET (FP) PO SCH (09:47)
[2017-11-08] MEDS: NYSTATIN POWDER 100,000 UNITS/GM - 15 GM TOPICAL POWDER TP SCH (09:48)
[2017-11-08] MEDS: COLLAGENASE CLOSTRIDIUM HIST. 30 GRAMS TUBE TP SCH (09:48)
[2017-11-08 10:25] VITALS: BP 141/60; PULSE 86; TEMP 98.1
== END 2017-11-08 12:18 | disposition home health service (06) | DRG 689 ==
LOC: JER 13:03 → JERBED 15:58 → J8W 17:47
PROVIDERS: ADMIT Family Medicine; ATTEND Family Medicine
DX: N39.0 Urinary tract infection, site not specified (principal); L89.153 Pressure ulcer of sacral region, stage 3; N17.9 Acute kidney failure, unspecified; I13.0 Hypertensive heart and chronic kidney disease with heart failure and stage 1 through stage 4 chronic kidney disease, or unspecified chronic kidney disease; N18.9 Chronic kidney disease, unspecified; I50.9 Heart failure, unspecified; E78.5 Hyperlipidemia, unspecified; F41.9 Anxiety disorder, unspecified; B96.29 Other Escherichia coli [E. coli] as the cause of diseases classified elsewhere; D47.3 Essential (hemorrhagic) thrombocythemia; Z16.24 Resistance to multiple antibiotics
CPT/HCPCS: 36415; 71045-TC-FY; 71046-TC-FY; 80048; 80053; 80061; 81003; 81015; 83036; 83721; 83880; 85025; 85027; 85651; 86140; 87040; 87086; 87186; 93005; 93010; 99283-25; J1644

== ENCOUNTER 2018-05-06 12:00 | Inpatient (IN) | payer OTHER, BC ==
[2018-05-27] MEDS ORDERED: ceFAZolin SODIUM 1 GM VIAL ONE ×2 (08:57→18:08)
[2018-05-27] MEDS ORDERED: DEXAMETHASONE SOD PHOSPHATE/PF 10 MG/ML SDV ONE (10:25)
[2018-05-27] MEDS ORDERED: BUPIVACAINE HCL/PF 0.25% (2.5MG/ML) 10 ML VIAL ONE (10:25)
[2018-05-27] MEDS ORDERED: MIDAZOLAM HCL 2 MG/2 ML SINGLE DOSE VIAL ONE ×2 (10:27)
[2018-05-27] MEDS ORDERED: CEFAZOLIN 2 GM in DEXTROSE 5%-WATER - 100 ML IVPB ONE (10:36)
[2018-05-27] MEDS ORDERED: fentaNYL CITRATE 250 MCG/5 ML VIAL ONE (11:17)
[2018-05-27] MEDS ORDERED: PROPOFOL 20 ML ONE ×3 (11:17→13:12)
[2018-05-27] MEDS ORDERED: LIDOCAINE HCL/PF 2% SDV 5ML VIAL ONE (11:17)
[2018-05-27] MEDS ORDERED: ROCURONIUM BROMIDE 50 MG/5 ML VIAL ONE (11:17)
--- NOTE | 2018-05-27 11:28 | HP ---
Admitting History and Physical - Admission Chief Complaint: abdominal mass. elevated CA 125 History of Present Illness: Pt presented with increased abdominal girth. 20 cm Pelvic mass CA 125 elevated History Source: Patient, Medical Record - Past Medical History Cardiovascular: Yes: CHF, HTN. No: AFIB Pulmonary: Yes: Other (PLEURAL EFFUSION). No: Asthma Renal/: Yes: Renal Inusuff - Past Surgical History Past Surgical History: Yes: Tubal Ligation - Smoking History Smoking history: Never smoked Have you smoked in the past 12 months: No - Alcohol/Substance Use Hx Alcohol Use: No History of Substance Use: reports: None - Social History ADL: Independent History of Recent Travel: No Home Medications - Allergies Allergies/Adverse Reactions: Allergies Allergy/AdvReac Type Severity Reaction Status Date / Time No Known Allergies Allergy Verified 05/23/18 17:16 - Home Medications Home Medications: Ambulatory Orders Escitalopram Oxalate [Lexapro -] 10 mg PO DAILY tablet 09/04/17 Furosemide [Lasix -] 40 mg PO DAILY tablet 09/04/17 Pantoprazole Sodium [Protonix -] 40 mg PO DAILY tablet.ec 09/04/17 Losartan Potassium 50 mg PO DAILY 05/23/18 Metoprolol Tartrate [Lopressor -] 25 mg PO BID 05/23/18 Rosuvastatin [Crestor -] 20 mg PO DAILY 05/23/18 Family Disease History - Family Disease History Family Disease History: Heart Disease: Father, Mother Physical Examination Vital Signs: Vital Signs Temperature 97.7 F 05/27/18 09:16 Pulse Rate 85 05/27/18 09:16 Respiratory Rate 20 05/27/18 09:16 Blood Pressure 135/69 05/27/18 09:16 O2 Sat by Pulse Oximetry (%) Constitutional: Yes: Well Nourished, No Distress, Calm Eyes: Yes: WNL HENT: Yes: WNL Neck: Yes: WNL Cardiovascular: Yes: WNL Respiratory: Yes: WNL Gastrointestinal: Yes: WNL, Soft, Ascites, Hernia Integumentary: Yes: WNL Neurological: Yes: WNL ...Motor Strength: WNL Psychiatric: Yes: WNL, Alert, Oriented Problem List - Problems (1) Pelvic mass Code(s): R19.00 - INTRA-ABD AND PELVIC SWELLING, MASS AND LUMP, UNSP SITE Assessment/Plan 67 yo with 20 cm pelvic mass, uterine vs. ovarian. We have discussed PASCUAL/BSO/ debulking. R/B/I/A were discussed, all questions answered. Informed consent signed.
[2018-05-27] MEDS ORDERED: ceFAZolin 2 GRAM PREMIX BAG IVPB ONE (11:58)
[2018-05-27] MEDS ORDERED: NEOSTIGMINE METHYLSULFATE 0.5 MG/ML - 10 ML MDV ONE (12:16)
[2018-05-27] MEDS ORDERED: GLYCOPYRROLATE 0.2 MG/1 ML VIAL ONE (12:16)
[2018-05-27] MEDS ORDERED: SUCCINYLCHOLINE CHLORIDE 200 MG/10 ML VIAL ONE (13:11)
--- NOTE | 2018-05-27 13:33 | OP ---
Operative Note - Note: Operative Date: 05/27/18 Pre-Operative Diagnosis: abdominal mass. elevated CA 125 Operation: Open abdominal TAHBSO, partial omentectomy, umbilical hernia repair Findings: Umbilical hernia without any contents, massive amount of ascites Post-Operative Diagnosis: Same as Pre-op Surgeon: Anna David Recreation Therapy Aides Teacher: Ben Landrum Anesthesiologist/SCREEN PRINTING LOADER UNLOADER: Dana Altman Anesthesia: General Specimens Removed: Uteruse, cervix, bilat tubes and ovaries, ascites (7950 mL) and omentum Estimated Blood Loss (mls): 25 Drains, Volume Out (mls): 5 (Granados, clear) Fluid Volume Replaced (mls): 3,000 Operative Report Dictated: Yes
--- NOTE | 2018-05-27 13:34 | SURG ---
Surgery Elevator Conductor Note Elevator Conductor: Ben Landrum PA-C Date of Service: 05/27/18 Diagnosis: Increased abdominal girth and elevated CEA Procedure: Open abdominal TAHBSO, partial omentectomy, umbilical hernia repair I was present for the entirety of the operative procedure. For further detail, please refer to operative report. Visit type - Case Type Case Type: Scheduled - New patient This patient is new to me today: Yes Date on this admission: 05/27/18
[2018-05-27] MEDS ORDERED: ONDANSETRON 4 MG/2 ML VIAL IVPUSH PRN (13:48)
[2018-05-27] MEDS ORDERED: LACTATED RINGERS SOLUTION 1,000 ML IV SCH (14:00)
--- NOTE | 2018-05-27 15:23 | OP ---
DATE OF OPERATION: 05/27/2018 PREOPERATIVE DIAGNOSES: A 27-cm abdominal-pelvic mass. Ascites. Umbilical hernia. POSTOPERATIVE DIAGNOSES: Right ovarian fibroma. Ascites. Umbilical hernia. PROCEDURES: Exploratory laparotomy. Total abdominal hysterectomy. Bilateral salpingo-oophorectomy. Partial omentectomy. Umbilical hernia repair. SURGEON: Anna David MD TECHNICIAN SEMICONDUCTOR DEVELOPMENT: RALEIGH Vera ANESTHESIA: General endotracheal and bilateral TAP blocks. ESTIMATED BLOOD LOSS: 250 mL. COMPLICATIONS: None. INDICATIONS: This is a 67-year-old with a 27-mm, hard abdominopelvic mass, uterine versus ovarian, with an elevated C125 of 697. The patient was counseled regarding surgical management. Risks, benefits, indications, and alternatives were discussed with the patient. All questions were answered. Informed consent was signed. FINDINGS: There was a large, approximately 3-cm umbilical hernia which was reducible. There was 6.9 L of clear, yellow ascites and a 20-cm, irregular, firm, white mass arising from the right adnexa. Bilateral tubes appeared normal. The left ovary contained a 3-cm cyst. Uterus was 6-weeks' size. There was fibrinous exudate along the rectum and the cul-de-sac. The omentum appeared normal. The liver edges were smooth. The diaphragm edges were smooth. PROCEDURE: Patient was taken to the operating room and placed in the dorsal supine position. General endotracheal anesthesia was obtained without difficulty. A Granados catheter was placed. A vertical midline skin incision was made with a scalpel, carried down to the underlying fascia, and fascia was opened up in the midline. The peritoneum was entered sharply and 6.9 L of clear, yellow ascites was able to be aspirated. This incision was extended inferiorly and superiorly with excellent visualization of the bladder and the bowel well below. The mass was exteriorized and Carlota clamps were placed cross the utero-ovarian ligament. The mass was removed and handed off the field for frozen section. It returned fibroma, defer to permanent section. The right round ligament was suture ligated and divided. The broad ligament was opened and divided. The left round ligament was suture ligated and divided. The left retroperitoneum was opened and the left ureter was identified. The left infundibulopelvic ligament was clamped, transected, and doubly tied with a 0 Vicryl. The right infundibulopelvic ligament had been identified well away from the ureter. It was clamped, transected, and ligated with a free tie of 0 Vicryl and suture ligated with 0 Vicryl. The bladder flap was created anteriorly, dissecting the bladder off the anterior cervix of her vagina. Uterine arteries bilaterally were skeletonized. They were clamped, cauterized and transected. The cardinal ligaments were serially clamped, cauterized and transected. The uterosacral ligaments were clamped, cauterized and transected. Two strongly curved zeppelin clamps were placed distally across the cervix. The uterus, cervix, left tube, and ovary were amputated from the vagina and handed off the field. Vaginal cuffings were closed with 0 Vicryl and the remainder of the vaginal cuff was closed with 0 Vicryl in a running locked fashion. The pelvis was thoroughly irrigated with sterile water and noted to be hemostatic. As we were waiting for the frozen section to return, a partial omentectomy was performed. The omental vessels were clamped, transected, and ligated with a free tie of 0 Vicryl. Excellent hemostasis was seen. Thorough exam of the abdomen and pelvis revealed the above-noted findings. The umbilical hernia sac was excised, and using 0 looped PDS, the fascia was closed in a running mass fashion incorporating the umbilical hernia closing this defect , and the subcutaneous fat was irrigated with saline. Hemostasis was achieved. Skin was closed with mariano. Patient was extubated and transferred in stable condition to the PACU. Sponge, needle, and instrument counts were correct x2. Arti [id number] MTDD
[2018-05-27 15:46] LABS: HEMATOCRIT 33.3 % (32.4-45.2); HEMOGLOBIN 10.2 GM/dL (10.7-15.3); MCH 25.4 pg (25.7-33.7); MCHC 30.8 g/dl (32.0-36.0); MEAN CELL VOLUME 82.5 fl (80-96); MEAN PLT VOLUME 6.9 fl (7.5-11.1); PLATELET COUNT 518 K/MM3 (134-434); RBC 4.04 M/mm3 (3.60-5.2); WHITE BLOOD COUNT 14.4 K/mm3 (4.0-10.0)
[2018-05-27 15:53] LABS: ALBUMIN 2.2 g/dl (3.4-5.0); ANION GAP 6 MMOL/L (8-16); BLOOD UREA NITROGEN 18 mg/dL (7-18); CALCIUM 8.2 mg/dL (8.5-10.1); CHLORIDE 108 mmol/L (98-107); CO2 30 mmol/L (21-32); CREATININE 1.5 mg/dL (0.55-1.3); GLUCOSE,RANDOM 149 mg/dL (74-106); POTASSIUM 4.5 mmol/L (3.5-5.1); SODIUM 144 mmol/L (136-145)
[2018-05-27] MEDS ORDERED: CEFAZOLIN 1 GM in DEXTROSE 5%-WATER - 100 ML IVPB SCH (18:00)
[2018-05-27] MEDS ORDERED: CEFAZOLIN 1 GM in DEXTROSE 5%-WATER - 50 ML IVPB SCH (18:05)
[2018-05-27] MEDS ORDERED: DEXTROSE 5%-WATER - 50 ML IVPB ONE (18:08)
[2018-05-27] MEDS: LACTATED RINGERS SOLUTION 1,000 ML/1,000 ML INFUS.BAG IV SCH ×2 (18:15→21:35)
[2018-05-27] MEDS: ACETAMINOPHEN 325 MG TABLET (FP) PO PRN (18:23)
[2018-05-27] MEDS: oxyCODONE HCL 5 MG TABLET PO PRN (18:24)
[2018-05-27] MEDS: METOPROLOL TARTRATE 25 MG TABLET (FP) PO SCH (21:32)
[2018-05-27] MEDS: MORPHINE SULFATE 2 MG/ML VIAL IVPUSH PRN (23:27)
[2018-05-28] MEDS ORDERED: DEXTROSE 5%-WATER - 50 ML IVPB ONE (01:56)
[2018-05-28] MEDS ORDERED: ceFAZolin SODIUM 1 GM VIAL ONE (01:56)
[2018-05-28 06:31] LABS: HEMATOCRIT 30.1 % (32.4-45.2); HEMOGLOBIN 9.3 GM/dL (10.7-15.3); MCH 25.6 pg (25.7-33.7); MEAN CELL VOLUME 82.6 fl (80-96); MEAN PLT VOLUME 6.7 fl (7.5-11.1); PLATELET COUNT 452 K/MM3 (134-434); RBC 3.65 M/mm3 (3.60-5.2); WHITE BLOOD COUNT 11.4 K/mm3 (4.0-10.0)
[2018-05-28] MEDS: MORPHINE SULFATE 2 MG/ML VIAL IVPUSH PRN (06:52)
--- NOTE | 2018-05-28 08:35 | CONSULT ---
Consult - Past Medical History Cardio/Vascular: Yes: CHF, HTN. No: AFIB Pulmonary: Yes: Other (PLEURAL EFFUSION). No: Asthma Renal/: Yes: Renal Inusuff - Past Surgical History Past Surgical History: Yes: Tubal Ligation - Alcohol/Substance Use Hx Alcohol Use: No History of Substance Use: reports: None - Smoking History Smoking history: Never smoked Have you smoked in the past 12 months: No - Social History Usual Living Arrangement: Alone (, sons live nearby) ADL: Independent History of Recent Travel: No Home Medications - Allergies Allergies/Adverse Reactions: Allergies Allergy/AdvReac Type Severity Reaction Status Date / Time No Known Allergies Allergy Verified 05/23/18 17:16 - Home Medications Home Medications: Ambulatory Orders Escitalopram Oxalate [Lexapro -] 10 mg PO DAILY tablet 09/04/17 Furosemide [Lasix -] 40 mg PO DAILY tablet 09/04/17 Pantoprazole Sodium [Protonix -] 40 mg PO DAILY tablet.ec 09/04/17 Losartan Potassium 50 mg PO DAILY 05/23/18 Metoprolol Tartrate [Lopressor -] 25 mg PO BID 05/23/18 Rosuvastatin [Crestor -] 20 mg PO DAILY 05/23/18 Family Disease History - Family Disease History Family Disease History: Heart Disease: Father, Mother Physical Exam Vital Signs: Vital Signs Temperature 98.3 F 05/28/18 06:00 Pulse Rate 75 05/28/18 06:00 Respiratory Rate 20 05/28/18 06:00 Blood Pressure 140/77 05/28/18 06:00 O2 Sat by Pulse Oximetry (%) 95 05/27/18 21:00 Labs: CBC, BMP 05/28/18 06:00 05/27/18 15:00 Problem List - Problems (1) S/P PASCUAL-BSO Assessment/Plan: Operative Date: 05/27/18 Pre-Operative Diagnosis: abdominal mass. elevated CA 125 Operation: Open abdominal TAHBSO, partial omentectomy, umbilical hernia repair Findings: Umbilical hernia without any contents, massive amount of ascites Post-Operative Diagnosis: Same as Pre-op Surgeon: Anna David Wraparound Facilitator: Ben Landrum Anesthesiologist/SPORT INTERNSHIP: Dana Altman Anesthesia: General Specimens Removed: Uteruse, cervix, bilat tubes and ovaries, ascites (7950 mL) and omentum Further Plan Per Lead Software Qa Engineer dvt prophylaxis Code(s): Z90.710 - ACQUIRED ABSENCE OF BOTH CERVIX AND UTERUS; Z90.722 - ACQUIRED ABSENCE OF OVARIES, BILATERAL; Z90.79 - ACQUIRED ABSENCE OF OTHER GENITAL ORGAN(S) (2) CHF (congestive heart failure) Assessment/Plan: -Stable -Monitor -Lasix -Cardio Code(s): I50.9 - HEART FAILURE, UNSPECIFIED (3) CKD (chronic kidney disease) Assessment/Plan: -Monitor Labs -Renal consult Code(s): N18.9 - CHRONIC KIDNEY DISEASE, UNSPECIFIED (4) HTN (hypertension) Assessment/Plan: -Monitor Vital Signs Period Temp Pulse Resp BP Sys/Vega Pulse Ox Last 24 Hr 97.8 F-98.6 F 53-81 14-20 125-156/51-82 90-100 Orders 05/27/18 22:00 Metoprolol Tartrate [Lopressor -] 25 mg PO BID 05/28/18 10:00 Losartan Potassium [Cozaar -] 50 mg PO DAILY Code(s): I10 - ESSENTIAL (PRIMARY) HYPERTENSION
--- NOTE | 2018-05-28 09:12 | PN ---
Progress Note (short form) - Note Progress Note: surgery POD#1 Open abdominal TAHBSO, partial omentectomy, umbilical hernia repair. Patient seen and examined at bedside with no complaints. Patient states her pain is controlled. She is urinating without limitation and denies any CP, SOB, N/V, Fever, Chills or blurred vision/dizziness. Vital Signs Temp 98.3 F 05/28/18 06:00 Pulse 75 05/28/18 06:00 Resp 20 05/28/18 06:00 BP 140/77 05/28/18 06:00 Pulse Ox 95 05/27/18 21:00 Intake & Output 05/27/18 05/27/18 05/28/18 11:59 23:59 11:59 Intake Total 2600 1300 1200 Output Total 300 7700 200 Balance 2300 -6400 1000 Weight 154 lb 143 lb Intake: IV 2600 1300 900 LACTATED RINGERS SOLUTION 300 900 1,000 ml In 1,000 ml @ 75 mls/hr IV ASDIR CARLTON Rx #:[id number] IVPB 100 Oral 200 Output: Urine 50 200 200 Granados 200 Estimated Blood Loss 250 Other 7500 Other: Voiding Method Bedpan Bowel Movement No Height 5 ft 3 in Body Mass Index (BMI) 27.3 Weight Measurement Method Stated by Patient Standing Scale CBC, BMP 05/28/18 06:00 05/27/18 15:00 Peritoneal fluid gram stain, protein and albumin pending PE: A&Ox3, NAD unlabored resp on 2L NC ABD: slightly distended but soft and supple throughout, mild TTP throughout appropriate to status, Midline incision c/d/i with mariano in situ surrounding tissue intact with no tracking erythema or ecchymosis. B/L LE compartments soft, supple and non-tender with +2 pedal pulses. Problem List - Problems (1) S/P PASCUAL-BSO Assessment/Plan: POD #1 TAHBSO with significant amount of peritoneal fluid in abdomen, doing well. 1) f/u Peritoneal fluid gram stain/culturem protein/albumin 2) advance diet 3) OOB as tolerated with assist 4) Keep dressing clean and dry 5) d/c planning for home tomorrow if remains stable Evaluation and plan discussed with Dr David Code(s): Z90.710 - ACQUIRED ABSENCE OF BOTH CERVIX AND UTERUS; Z90.722 - ACQUIRED ABSENCE OF OVARIES, BILATERAL; Z90.79 - ACQUIRED ABSENCE OF OTHER GENITAL ORGAN(S)
[2018-05-28] MEDS: PANTOPRAZOLE 40 MG TABLET (FP) PO SCH (09:46)
[2018-05-28] MEDS: ROSUVASTATIN CA 20 MG TABLET (FP) PO SCH (09:46)
[2018-05-28] MEDS: FUROSEMIDE 40 MG TABLET (FP) PO SCH (09:46)
[2018-05-28] MEDS: LOSARTAN POTASSIUM 50 MG TABLET (FP) PO SCH (09:46)
[2018-05-28] MEDS: ESCITALOPRAM OXALATE 10 MG TABLET (FP) PO SCH (09:46)
[2018-05-28] MEDS: METOPROLOL TARTRATE 25 MG TABLET (FP) PO SCH ×2 (09:46→21:44)
[2018-05-28] MEDS: ENOXAPARIN NA (PORCINE) 30 MG/0.3 ML DISP.SYRIN SQ SCH (09:46)
[2018-05-28] MEDS: ACETAMINOPHEN 325 MG TABLET (FP) PO PRN (11:42)
[2018-05-28] MEDS: oxyCODONE HCL 5 MG TABLET PO PRN ×2 (11:44→21:43)
--- NOTE | 2018-05-28 13:13 | CONSULT ---
Consultation: CONSULT REQUEST: Nephrology Resident HISTORY OF PRESENT ILLNESS: 67yo F with h/o REVIEW OF SYSTEMS: CONSTITUTIONAL: Absent: fever, chills, diaphoresis, generalized weakness, malaise, loss of appetite, weight change HEENT: Absent: rhinorrhea, nasal congestion, throat pain, throat swelling, difficulty swallowing, mouth swelling, ear pain, eye pain, visual changes CARDIOVASCULAR: Absent: chest pain, syncope, palpitations, irregular heart rate, lightheadedness , peripheral edema RESPIRATORY: Absent: cough, shortness of breath, dyspnea with exertion, orthopnea, wheezing, stridor, hemoptysis GASTROINTESTINAL: Absent: abdominal pain, abdominal distension, nausea, vomiting, diarrhea, constipation, melena, hematochezia GENITOURINARY: Absent: dysuria, frequency, urgency, hesitancy, hematuria, flank pain, genital pain MUSCULOSKELETAL: Absent: myalgia, arthralgia, joint swelling, back pain, neck pain SKIN: Absent: rash, itching, pallor HEMATOLOGIC/IMMUNOLOGIC: Absent: easy bleeding, easy bruising, lymphadenopathy, frequent infections ENDOCRINE: Absent: unexplained weight gain, unexplained weight loss, heat intolerance, cold intolerance NEUROLOGIC: Absent: headache, focal weakness or paresthesias, dizziness, unsteady gait, seizure, mental status changes, bladder or bowel incontinence PSYCHIATRIC: Absent: anxiety, depression, suicidal or homicidal ideation, hallucinations. PHYSICAL EXAMINATION Vital Signs - 24 hr 05/27/18 05/27/18 05/27/18 13:38 13:55 14:10 Temperature 98.1 F Pulse Rate 58 L 62 62 Respiratory 19 15 16 Rate Blood Pressure 133/52 L 141/64 148/55 L O2 Sat by Pulse 90 L 94 L 100 Oximetry (%) 05/27/18 05/27/18 05/27/18 14:25 14:40 14:55 Temperature Pulse Rate 59 L 56 L 60 Respiratory 16 16 18 Rate Blood Pressure 149/59 L 140/54 L 139/54 L O2 Sat by Pulse 96 97 94 L Oximetry (%) 05/27/18 05/27/18 05/27/18 15:10 15:25 15:40 Temperature Pulse Rate 54 L 53 L 55 L Respiratory 18 16 16 Rate Blood Pressure 136/74 125/63 140/55 L O2 Sat by Pulse 94 L 96 94 L Oximetry (%) 05/27/18 05/27/18 05/27/18 15:55 16:10 16:25 Temperature Pulse Rate 54 L 55 L 56 L Respiratory 16 15 18 Rate Blood Pressure 148/59 L 148/59 L 127/51 L O2 Sat by Pulse 92 L 94 L 96 Oximetry (%) 05/27/18 05/27/18 05/27/18 16:40 16:55 17:10 Temperature Pulse Rate 54 L 62 58 L Respiratory 18 14 18 Rate Blood Pressure 131/52 L 125/58 L 154/62 O2 Sat by Pulse 95 95 95 Oximetry (%) 05/27/18 05/27/18 05/27/18 17:20 17:25 20:53 Temperature 97.8 F 98.5 F 98.0 F Pulse Rate 61 75 72 Respiratory 18 16 18 Rate Blood Pressure 156/82 151/72 151/76 O2 Sat by Pulse Oximetry (%) 05/27/18 05/28/18 05/28/18 21:00 02:00 06:00 Temperature 98.6 F 98.3 F Pulse Rate 81 75 Respiratory 18 20 20 Rate Blood Pressure 151/58 L 140/77 O2 Sat by Pulse 95 Oximetry (%) 05/28/18 10:00 Temperature Pulse Rate Respiratory 20 Rate Blood Pressure O2 Sat by Pulse 95 Oximetry (%) GENERAL: Awake, alert, and fully oriented, in no acute distress. HEAD: Normal with no signs of trauma. EYES: Pupils equal, round and reactive to light, extraocular movements intact, sclera anicteric, conjunctiva clear. No lid lag. EARS, NOSE, THROAT: Ears normal, nares patent, oropharynx clear without exudates. Moist mucous membranes. NECK: Normal range of motion, supple without lymphadenopathy, JVD, or masses. LUNGS: Breath sounds equal, clear to auscultation bilaterally. No wheezes, and no crackles. No accessory muscle use. HEART: Regular rate and rhythm, normal S1 and S2 without murmur, rub or gallop. ABDOMEN: Soft, nontender, not distended, normoactive bowel sounds, no guarding, no rebound, no masses. No hepatomegaly or splenomegaly. MUSCULOSKELETAL: Normal range of motion at all joints. No bony deformities or tenderness. No CVA tenderness. UPPER EXTREMITIES: 2+ pulses, warm, well-perfused. No cyanosis. No clubbing. Cap refill <2 seconds. No peripheral edema. LOWER EXTREMITIES: 2+ pulses, warm, well-perfused. No calf tenderness. No peripheral edema. NEUROLOGICAL: Cranial nerves II-XII intact. Normal speech. Normal gait. PSYCHIATRIC: Cooperative. Good eye contact. Appropriate mood and affect. SKIN: Warm, dry, normal turgor, no rashes or lesions noted. Laboratory Results - last 24 hr 05/27/18 05/27/18 05/28/18 14:00 15:00 06:00 WBC 14.4 H 11.4 H RBC 4.04 3.65 Hgb 10.2 L 9.3 L Hct 33.3 30.1 L MCV 82.5 82.6 MCH 25.4 L 25.6 L MCHC 30.8 L 31.0 L RDW 15.0 15.0 Plt Count 518 H 452 H MPV 6.9 L 6.7 L Sodium 144 Potassium 4.5 Chloride 108 H Carbon Dioxide 30 Anion Gap 6 L BUN 18 Creatinine 1.5 H Creat Clearance w eGFR 34.64 Random Glucose 149 H Calcium 8.2 L Albumin 2.2 L Active Medications Generic Name Dose Route Start Last Admin Trade Name Freq PRN Reason Stop Dose Admin Acetaminophen 325 mg 05/27/18 15:17 05/28/18 11:42 Tylenol - PO 325 mg Q6H PRN Administration PAIN 1-5 Enoxaparin Sodium 30 mg 05/28/18 10:00 05/28/18 09:46 Lovenox - SQ 30 mg DAILY [facility] Administration Escitalopram Oxalate 10 mg 05/28/18 10:00 05/28/18 09:46 Lexapro - PO 10 mg DAILY [facility] Administration Fentanyl 50 mcg 05/27/18 13:48 05/27/18 16:05 Sublimaze Injection - IVPUSH 50 mcg [id number] PRN Administration PAIN-PACU ORDER X 4 DOSES ONLY Furosemide 40 mg 05/28/18 10:00 05/28/18 09:46 Lasix - PO 40 mg DAILY [facility] Administration Lactated Ringer's 1,000 ml in 1,000 mls @ 75 mls/hr 05/27/18 15:15 05/27/18 21:35 Lactated Ringers Solution IV 75 mls/hr ASDIR CARLTON Administration Losartan Potassium 50 mg 05/28/18 10:00 05/28/18 09:46 Cozaar - PO 50 mg DAILY [facility] Administration Metoprolol Tartrate 25 mg 05/27/18 22:00 05/28/18 09:46 Lopressor - PO 25 mg BID CAR[facility]TON Administration Morphine Sulfate 2 mg 05/27/18 22:46 05/28/18 06:52 Morphine Sulfate IVPUSH 2 mg Q2H PRN Administration PAIN LEVEL 6-10 Ondansetron HCl 4 mg 05/27/18 13:48 Zofran Injection IVPUSH Q6H PRN NAUSEA AND/OR VOMITING Oxycodone HCl 5 mg 05/27/18 15:17 05/28/18 11:44 Roxicodone - PO 5 mg Q6H PRN Administration PAIN LEVEL 1-5 Pantoprazole Sodium 40 mg 05/28/18 10:00 05/28/18 09:46 Protonix - PO 40 mg DAILY [facility] Administration Rosuvastatin Calcium 20 mg 05/28/18 10:00 05/28/18 09:46 Crestor - PO 20 mg DAILY [facility] Administration ASSESSMENT/PLAN: Dispo: We will continue to follow the patient. Thank you for this consultative opportunity.
--- NOTE | 2018-05-28 13:21 | CONSULT ---
Consultation: CONSULT REQUEST: Nephrology Resident HISTORY OF PRESENT ILLNESS: 67yo F with h/o CHF, HTN, and chronic renal insufficiency who presented to the hospital initially for umbilical hernia and underwent an open abdominal TAHBSO, partial omentectomy, and umbilical repair alongside of hysterectomy. We were asked to medically evaluate the pt due to her renal insufficiency. Pt currently is POD#1 and had 3L of fluid in the OR with minimal EBL. Pt currently feels okay, has no complaints, and reports her pain is well controlled. Pt reports having been told that her Cr has been previously abnormal before, however does not have much insight as to why. Denies fever/chills, shortness of breath, chest pain, palpitations, back pain, urinary difficulties including polyuria, dysuria, and hematuria. Pt does endorse increase peripheral edema, however she has chronically had it due to congestive heart failure PMHx: CHF HTN CKD PSHx: L ankle repair Hysterectomy SoHx: Tobacco: Denies Alcohol: Denies Drugs: Denies Independent ADLs, lives at home; pt does not use home oxygen Allergies: NKDA REVIEW OF SYSTEMS: CONSTITUTIONAL: Absent: fever, chills, diaphoresis, generalized weakness, malaise, loss of appetite HEENT: Absent: rhinorrhea, nasal congestion, throat pain, throat swelling, difficulty swallowing, mouth swelling, ear pain, eye pain, visual changes CARDIOVASCULAR: Present: Peripheral edema Absent: chest pain, syncope, palpitations, irregular heart rate, lightheadedness RESPIRATORY: Absent: cough, shortness of breath, dyspnea with exertion, orthopnea, wheezing GASTROINTESTINAL: Absent: abdominal pain, abdominal distension, nausea, vomiting, diarrhea, constipation GENITOURINARY: Absent: dysuria, frequency, urgency, hesitancy, hematuria, flank pain MUSCULOSKELETAL: Absent: back pain, neck pain SKIN: Absent: rash, itching, pallor NEUROLOGIC: Absent: headache, focal weakness or paresthesias, dizziness, unsteady gait, seizure, mental status changes, bladder or bowel incontinence PSYCHIATRIC: Absent: anxiety, depression PHYSICAL EXAMINATION Vital Signs 05/27/18 05/28/18 05/28/18 21:00 02:00 06:00 Temperature 98.6 F 98.3 F Pulse Rate 81 75 Respiratory 18 20 20 Rate Blood Pressure 151/58 L 140/77 O2 Sat by Pulse 95 Oximetry (%) GENERAL: NAD, awake, alert, and fully oriented, laying in bed HEENT: NC/AT, EOMI, PRINCESS, sclera anicteric, MMM NECK: No JVD LUNGS: Bibasillar diminished breath sounds bilaterally however otherwise CTA. No wheezes. No accessory muscle use. On 2LNC HEART: RRR, normal S1 and S2 without murmur ABDOMEN: Soft, tenderness towards surgical site, surgical bandage overlying lower abdomen without any drainage noted (recently changed), hypoactive BS. MUSCULOSKELETAL: No CVA tenderness. EXTREMITIES: 2+ DP pulses, warm, well-perfused. No cyanosis. Trace to 1+ pitting edema at the ankles. No calf tenderness PSYCHIATRIC: Cooperative. Good eye contact. Appropriate mood and affect. SKIN: Warm, dry, no rashes noted. Laboratory Results - last 24 hr 05/27/18 05/27/18 05/28/18 14:00 15:00 06:00 WBC 14.4 H 11.4 H RBC 4.04 3.65 Hgb 10.2 L 9.3 L Hct 33.3 30.1 L MCV 82.5 82.6 MCH 25.4 L 25.6 L MCHC 30.8 L 31.0 L RDW 15.0 15.0 Plt Count 518 H 452 H MPV 6.9 L 6.7 L Sodium 144 Potassium 4.5 Chloride 108 H Carbon Dioxide 30 Anion Gap 6 L BUN 18 Creatinine 1.5 H Creat Clearance w eGFR 34.64 Random Glucose 149 H Calcium 8.2 L Albumin 2.2 L Active Medications Generic Name Dose Route Start Last Admin Trade Name Freq PRN Reason Stop Dose Admin Acetaminophen 325 mg 05/27/18 15:17 05/28/18 11:42 Tylenol - PO 325 mg Q6H PRN Administration PAIN 1-5 Enoxaparin Sodium 30 mg 05/28/18 10:00 05/28/18 09:46 Lovenox - SQ 30 mg DAILY [facility] Administration Escitalopram Oxalate 10 mg 05/28/18 10:00 05/28/18 09:46 Lexapro - PO 10 mg DAILY [facility] Administration Fentanyl 50 mcg 05/27/18 13:48 05/27/18 16:05 Sublimaze Injection - IVPUSH 50 mcg [id number] PRN Administration PAIN-PACU ORDER X 4 DOSES ONLY Furosemide 40 mg 05/28/18 10:00 05/28/18 09:46 Lasix - PO 40 mg DAILY [facility] Administration Lactated Ringer's 1,000 ml in 1,000 mls @ 75 mls/hr 05/27/18 15:15 05/27/18 21:35 Lactated Ringers Solution IV 75 mls/hr ASDIR CARLTON Administration Losartan Potassium 50 mg 05/28/18 10:00 05/28/18 09:46 Cozaar - PO 50 mg DAILY [facility] Administration Metoprolol Tartrate 25 mg 05/27/18 22:00 05/28/18 09:46 Lopressor - PO 25 mg BID [facility]TON Administration Morphine Sulfate 2 mg 05/27/18 22:46 05/28/18 06:52 Morphine Sulfate IVPUSH 2 mg Q2H PRN Administration PAIN LEVEL 6-10 Ondansetron HCl 4 mg 05/27/18 13:48 Zofran Injection IVPUSH Q6H PRN NAUSEA AND/OR VOMITING Oxycodone HCl 5 mg 05/27/18 15:17 05/28/18 11:44 Roxicodone - PO 5 mg Q6H PRN Administration PAIN LEVEL 1-5 Pantoprazole Sodium 40 mg 05/28/18 10:00 05/28/18 09:46 Protonix - PO 40 mg DAILY [facility] Administration Rosuvastatin Calcium 20 mg 05/28/18 10:00 05/28/18 09:46 Crestor - PO 20 mg DAILY [facility]TON Administration ASSESSMENT/PLAN: Renal insufficiency Umbilical hernia s/p open abdominal surgery HTN CHF (not in exacerbation) --Cr 1.5 on today's labs, however within her baseline range based on previous studies --UA from 11/01/17 without any proteinuria --UA ordered to determine any change --Can continue Lasix 40mg qDaily for her edema and heart failure --Discontinue LR due to edema and pt being on regular diet --Monitor daily weights --Monitor Cr --Would benefit from outpatient nephrology follow-up after hospital discharge Dispo: Continue current mgmt. Labs in AM Case discussed with Dr. Braden Lau, DO - IM PGY-2 Visit type - Emergency Visit Emergency Visit: Yes ED Registration Date: 05/27/18 Care time: The patient presented to the Emergency Department on the above date and was hospitalized for further evaluation of their emergent condition. - New Patient This patient is new to me today: Yes Date on this admission: 05/28/18 - Critical Care Critical Care patient: No
--- NOTE | 2018-05-28 13:36 | PN ---
Teaching Attending Note Name of Resident: Jian Lau (Nephrology) ATTENDING PHYSICIAN STATEMENT I saw and evaluated the patient. I reviewed the resident's note and discussed the case with the resident. I agree with the resident's findings and plan as documented. Renal Eval Pt is a 67 year old female with pmhx of CKD, HTN, and CHF who is admitted for hysterectomy. I was called to evaluate her for elevated creatinine. She has history of CKD. Her renal function appears stable. SHe denies shortness of breath. 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 hx non contrib Current Medications Generic Name Dose Route Start Last Admin Trade Name Freq PRN Reason Stop Dose Admin Acetaminophen 325 mg 05/27/18 15:17 05/28/18 11:42 Tylenol - PO 325 mg Q6H PRN Administration PAIN 1-5 Enoxaparin Sodium 30 mg 05/28/18 10:00 05/28/18 09:46 Lovenox - SQ 30 mg DAILY [facility] Administration Escitalopram Oxalate 10 mg 05/28/18 10:00 05/28/18 09:46 Lexapro - PO 10 mg DAILY [facility] Administration Fentanyl 50 mcg 05/27/18 13:48 05/27/18 16:05 Sublimaze Injection - IVPUSH 50 mcg [id number] PRN Administration PAIN-PACU ORDER X 4 DOSES ONLY Furosemide 40 mg 05/28/18 10:00 05/28/18 09:46 Lasix - PO 40 mg DAILY [facility] Administration Lactated Ringer's 1,000 ml in 1,000 mls @ 75 mls/hr 05/27/18 15:15 05/27/18 21:35 Lactated Ringers Solution IV 75 mls/hr ASDIR CARLTON Administration Losartan Potassium 50 mg 05/28/18 10:00 05/28/18 09:46 Cozaar - PO 50 mg DAILY [facility] Administration Metoprolol Tartrate 25 mg 05/27/18 22:00 05/28/18 09:46 Lopressor - PO 25 mg BID [facility] Administration Morphine Sulfate 2 mg 05/27/18 22:46 05/28/18 06:52 Morphine Sulfate IVPUSH 2 mg Q2H PRN Administration PAIN LEVEL 6-10 Ondansetron HCl 4 mg 05/27/18 13:48 Zofran Injection IVPUSH Q6H PRN NAUSEA AND/OR VOMITING Oxycodone HCl 5 mg 05/27/18 15:17 05/28/18 11:44 Roxicodone - PO 5 mg Q6H PRN Administration PAIN LEVEL 1-5 Pantoprazole Sodium 40 mg 05/28/18 10:00 05/28/18 09:46 Protonix - PO 40 mg DAILY [facility] Administration Rosuvastatin Calcium 20 mg 05/28/18 10:00 05/28/18 09:46 Crestor - PO 20 mg DAILY [facility]TON Administration Selected Entries 05/28/18 06:00 Blood Pressure 140/77 Laboratory Tests 09/03/17 09/04/17 11/01/17 05:50 06:30 14:40 WBC Hgb Creatinine 1.5 H 1.2 H 1.7 H Urine Protein Urine Blood 11/01/17 11/04/17 11/06/17 17:10 06:00 06:20 WBC Hgb Creatinine 1.5 H 1.4 H Urine Protein Negative Urine Blood 1+ H 11/08/17 04/22/18 05/27/18 06:50 13:57 15:00 WBC Hgb Creatinine 1.4 H 1.9 H 1.5 H Urine Protein Urine Blood 05/28/18 06:00 WBC 11.4 H Hgb 9.3 L Creatinine Urine Protein Urine Blood Last Vital Signs Temp Pulse Resp BP Pulse Ox 98.3 F 75 20 140/77 95 05/28/18 06:00 05/28/18 06:00 05/28/18 10:00 05/28/18 06:00 05/28/18 10:00 cardio s1s2 pulm clear GI soft dressing in place ext neg edema gu [place] Impression 1. CKD 2. s/p hysterectomy 3. HTN 4. hx pleural effusion 5. CHF 6. hx smoking Plan - renal function is stable - can d/c fluids as she is on lasix - pt tolerating clears - monitor bp - check ua - cont cozaar
[2018-05-28 15:38] VITALS: BMI 25.3
--- NOTE | 2018-05-28 15:52 | CON.CARD ---
Consult Consult Specialty:: Cardiology Referred by:: Dr. Taylor Reason for Consultation:: h/o CHF - History of Present Illness Chief Complaint: h/o CHF History of Present Illness: 67 year old woman pmh HTN, CKD, mild acute decompensated diastolic/systolic CHF on a previous admission now admitted after found to have an abdominal mass and s /p open abdominal TAHBSO, partial omentectomy, and umbilical repair alongside of hysterectomy. pt seen and examined today in nad. denies any sob, chest pain, palpitations, no pnd, orthopnea or LE edema. she has chronic mild le edema but not currently. Echo 08/22/2018 showed normal LV size with mild global LV systolic dysfunction. - History Source History Provided By: Patient, Medical Record Limitations to Obtaining History: No Limitations - Past Medical History Cardio/Vascular: Yes: CHF, HTN. No: AFIB Pulmonary: Yes: Other (PLEURAL EFFUSION). No: Asthma Renal/: Yes: Renal Inusuff - Past Surgical History Past Surgical History: Yes: Tubal Ligation - Alcohol/Substance Use Hx Alcohol Use: No History of Substance Use: reports: None - Smoking History Smoking history: Never smoked Have you smoked in the past 12 months: No - Social History Usual Living Arrangement: Alone (, sons live nearby) ADL: Independent History of Recent Travel: No Home Medications - Allergies Allergies/Adverse Reactions: Allergies Allergy/AdvReac Type Severity Reaction Status Date / Time No Known Allergies Allergy Verified 05/23/18 17:16 - Home Medications Home Medications: Ambulatory Orders Escitalopram Oxalate [Lexapro -] 10 mg PO DAILY tablet 09/04/17 Furosemide [Lasix -] 40 mg PO DAILY tablet 09/04/17 Pantoprazole Sodium [Protonix -] 40 mg PO DAILY tablet.ec 09/04/17 Losartan Potassium 50 mg PO DAILY 05/23/18 Metoprolol Tartrate [Lopressor -] 25 mg PO BID 05/23/18 Rosuvastatin [Crestor -] 20 mg PO DAILY 05/23/18 Family Disease History - Family Disease History Family Disease History: Heart Disease: Father, Mother Review of Systems - Review of Systems Constitutional: denies: No Symptoms, Chills, Diaphoresis, Fever, Lethargy, Loss of Appetite, Malaise, Night Sweats, Unintentional Wgt. Loss, Weakness, Other Eyes: denies: No Symptoms, Blind Spots, Blurred Vision, Double Vision, Eye Pain , Floaters, Photophobia, Recent Change in Vision, Other HENT: denies: No Symptoms, Difficult Swallowing, Ear Discharge, Ear Pain, Epistaxis, Gingival Bleeding, Hearing Loss, Mouth Swelling, Nasal Congestion, Ocular Prosthesis, Throat Pain, Toothache, Ringing in Ears, Other Neck: denies: No Symptoms, Decreased ROM, Lumps, Pain on Movement, Stiffness, Swollen Glands, Tenderness, Other Cardiovascular: denies: No Symptoms, Chest Pain, Edema, Palpitations, Shortness of Breath, Other Respiratory: denies: No Symptoms, Cough, Exercise Intolerance, Hemoptysis, Orthopnea, PND, Snoring, SOB, SOB on Exertion, Wheezing, Other Gastrointestinal: reports: Abdominal Pain, Bloating Genitourinary: denies: No Symptoms, Burning, Discharge, Dysuria, Flank Pain, Frequency, Hematuria, Incontinence, Lesions, Menses, Pain, Testicular Mass, Testicular Pain, Testicular Swelling, Urgency, Vaginal Bleeding, Other Breasts: denies: No Symptoms Reported, See HPI, Breast Implants, Discharge from Nipple, Lumps, Pain, Skin Changes, Other Musculoskeletal: denies: No Symptoms, Back Pain, Crepitus, Decreased ROM, Extremity Pain, Joint Pain, Joint Swelling, Muscle Pain, Muscle Cramps, Muscle Weakness, Other Integumentary: denies: No Symptoms, Blister, Bruising, Change in Color, Eczema, Erythema, Incision, Lesions, Lump, Pallor, Pruritis, Rash, Wound, Other Neurological: denies: No Symptoms, Change in LOC, Change in Speech, Confusion, Dizziness, Headache, Incoordination, Numbness, Parasthesia, Pre-Existing Deficit , Seizure, Syncope, Tremors, Unsteady Gait, Weakness, Other Endocrine: denies: No Symptoms, Excessive Sweating, Flushing, Increased Hunger, Increased Thirst, Intolerance to Cold, Intolerance to Heat, Unexplained Weight Gain, Unexplained Weight Loss, Other Hematology/Lymphatic: denies: No Symptoms, Easily Bruised, Excessive Bleeding, Swollen Glands, Other Psychiatric: denies: No Symptoms, Altered Sleep Pattern, Anxiety, Depression, Hallucinations, Panic, Paranoia, Suicidal, Other - Risk Factors Known Risk Factors: Yes: Hypertension Vital Signs: Vital Signs Temperature 98.3 F 05/28/18 06:00 Pulse Rate 75 05/28/18 06:00 Respiratory Rate 20 05/28/18 10:00 Blood Pressure 140/77 05/28/18 06:00 O2 Sat by Pulse Oximetry (%) 95 05/28/18 10:00 Constitutional: Yes: Well Nourished, No Distress, Calm Eyes: Yes: WNL, Conjunctiva Clear, EOM Intact, PERRL HENT: Yes: WNL, Atraumatic, Normocephalic Neck: Yes: WNL, Supple, Trachea Midline Respiratory: Yes: WNL, Regular, CTA Bilaterally. No: Rales, Rhonchi, SOB, Wheezes Gastrointestinal: Yes: Normal Bowel Sounds, Tenderness Renal/: Yes: WNL Cardiovascular: Yes: WNL, Regular Rate and Rhythm. No: Bradycardia, Tachycardia , Pulse Irregular, Gallop, Rub, Varicosities JVD: No Carotid Bruit: No PMI: Non-Displaced Heart Sounds: Yes: S1, S2. No: Split S2, S3, S4, Clicks, Gallop, Rub, Bruit Murmur: No: Systolic Murmur, Diastolic Murmur Musculoskeletal: Yes: WNL Extremities: Yes: WNL Edema: No Peripheral Pulses WNL: Yes Peripheral Pulses: 2+ Left Doralis Pedis, 2+ Right Dorsalis Pedis Neurological: Yes: Alert, Oriented Psychiatric: Yes: Alert, Oriented - Other Data Labs, Other Data: CBC, BMP 05/28/18 06:00 05/27/18 15:00 not in emr Echo: Report Reviewed Ejection Fraction %: LVEF > or = 40 % Imaging - Results Chest X-ray: Report Reviewed, Image Reviewed EKG: Report Reviewed, Image Reviewed Other: Report Reviewed, Image Reviewed (tele-nsr) Assessment/Plan 67 year old woman pmh HTN, CKD, mild acute decompensated diastolic/systolic CHF on a previous admission now admitted after found to have an abdominal mass and s /p open abdominal TAHBSO, partial omentectomy, and umbilical repair alongside of hysterectomy. denies any sob, chest pain, palpitations, no pnd, orthopnea or LE edema. she has chronic mild le edema but not currently. Echo 08/22/2018 showed normal LV size with mild global LV systolic dysfunction. H/o chf-combined systolic/diastolic with mild global LV dysfunction on last echo as above -currently euvolemic -cont po Lasix -cont Metoprolol -cont Losartan if safe from renal standpoint -no additional inpatient cardiac work up is needed at this time. -does not require telemetry monitoring. [facility] outpatient fup. Please call with any additional questions.
--- NOTE | 2018-05-28 16:02 | PN ---
Progress Note (short form) - Note Progress Note: Post op day#1.S/P Hysterectomy with debulking of tumor under Ga with bilateral TAP block uneventful.Patient stable.No any anesthesia related problem.Patient DC from the anesthesia care.
[2018-05-28 17:23] LABS: URINE APPEARANCE CLOUDY; URINE BILIRUBIN NEGATIVE (<2.0 mg/dL); URINE COLOR LTYELLOW; URINE GLUCOSE (UA) NEGATIVE (NEGATIVE); URINE KETONE NEGATIVE (NEGATIVE); URINE LEUK ESTERASE NEGATIVE (NEGATIVE); URINE NITRITE NEGATIVE (NEGATIVE); URINE PROTEIN NEGATIVE (NEGATIVE); URINE UROBILINOGEN NEGATIVE mg/dL (0.2-1.0)
[2018-05-28 17:46] LABS: URINE MUCUS RARE
--- NOTE | 2018-05-28 18:12 | PATH ---
Cytology Non-Gynecological Report Patient Name: SHILO HAMPTON [facility]. Rec. #: [id number] /Age/Gender: 1950 (Age: 67) / F Account: [id number] Location: 4 SO PEDS/ADOL Taken: 05/27/2018 Received: 05/27/2018 Reported: 05/28/2018 Physicians: Anna David MD Specimen(s) Received PERITONEAL FLUID Clinical History Pelvic mass, ascites, pleural effusion Final Diagnosis PERITONEAL FLUID FOR CYTOLOGY: SATISFACTORY FOR EVALUATION. NO MALIGNANT CELLS IDENTIFIED. RARE MESOTHELIAL CELLS, MACROPHAGES AND LYMPHOCYTES PRESENT. Comment: See concurrent material ([id number]). Electronically Signed Shania Harris M.D. Gross Description Approximately 20 cc of yellow fluid received fresh. One cytofunnel prepared and Pap stained. One cellblock prepared.
[2018-05-29 07:04] LABS: BASO % 0.6 % (0-2.0); EOS % 0.5 % (0-4.5); HEMATOCRIT 30.1 % (32.4-45.2); HEMOGLOBIN 9.5 GM/dL (10.7-15.3); LYMPH % 11.8 % (8-40); MCH 26.2 pg (25.7-33.7); MCHC 31.6 g/dl (32.0-36.0); MONO % 7.2 % (3.8-10.2); NEUT % 79.9 % (42.8-82.8); PLATELET COUNT 433 K/MM3 (134-434); RBC 3.62 M/mm3 (3.60-5.2); RDW 14.9 % (11.6-15.6)
[2018-05-29 07:18] LABS: ANION GAP 4 MMOL/L (8-16); BLOOD UREA NITROGEN 19 mg/dL (7-18); CALCIUM 7.9 mg/dL (8.5-10.1); CHLORIDE 98 mmol/L (98-107); CO2 35 mmol/L (21-32); CREATININE 1.7 mg/dL (0.55-1.3); GLUCOSE,RANDOM 118 mg/dL (74-106); POTASSIUM 4.2 mmol/L (3.5-5.1); SODIUM 137 mmol/L (136-145)
--- NOTE | 2018-05-29 09:02 | PN ---
Progress Note, Physician - Current Medication List Current Medications: Active Medications Acetaminophen (Tylenol -) 325 mg PO Q6H PRN PRN Reason: PAIN 1-5 Last Admin: 05/28/18 11:42 Dose: 325 mg Enoxaparin Sodium (Lovenox -) 30 mg SQ DAILY [facility] Last Admin: 05/28/18 09:46 Dose: 30 mg Escitalopram Oxalate (Lexapro -) 10 mg PO DAILY [facility] Last Admin: 05/28/18 09:46 Dose: 10 mg Furosemide (Lasix -) 40 mg PO DAILY [facility] Last Admin: 05/28/18 09:46 Dose: 40 mg Losartan Potassium (Cozaar -) 50 mg PO DAILY [facility] Last Admin: 05/28/18 09:46 Dose: 50 mg Metoprolol Tartrate (Lopressor -) 25 mg PO BID [facility] Last Admin: 05/28/18 21:44 Dose: 25 mg Morphine Sulfate (Morphine Sulfate) 2 mg IVPUSH Q2H PRN PRN Reason: PAIN LEVEL 6-10 Last Admin: 05/28/18 06:52 Dose: 2 mg Ondansetron HCl (Zofran Injection) 4 mg IVPUSH Q6H PRN PRN Reason: NAUSEA AND/OR VOMITING Oxycodone HCl (Roxicodone -) 5 mg PO Q6H PRN PRN Reason: PAIN LEVEL 1-5 Last Admin: 05/28/18 21:43 Dose: 5 mg Pantoprazole Sodium (Protonix -) 40 mg PO DAILY [facility] Last Admin: 05/28/18 09:46 Dose: 40 mg Rosuvastatin Calcium (Crestor -) 20 mg PO DAILY [facility] Last Admin: 05/28/18 09:46 Dose: 20 mg - Objective Vital Signs: Vital Signs Temperature 98.8 F 05/29/18 06:00 Pulse Rate 65 05/29/18 06:00 Respiratory Rate 20 05/29/18 06:00 Blood Pressure 148/70 05/29/18 06:00 O2 Sat by Pulse Oximetry (%) 100 05/28/18 21:00 Cardiovascular: Yes: S1, S2 Respiratory: Yes: Regular, CTA Bilaterally Gastrointestinal: Yes: Normal Bowel Sounds, Soft Labs: CBC, BMP 05/29/18 06:00 05/29/18 06:00 Problem List - Problems (1) S/P PASCUAL-BSO Assessment/Plan: Operative Date: 05/27/18 Pre-Operative Diagnosis: abdominal mass. elevated CA 125 Operation: Open abdominal TAHBSO, partial omentectomy, umbilical hernia repair Findings: Umbilical hernia without any contents, massive amount of ascites Post-Operative Diagnosis: Same as Pre-op Surgeon: Anna David Electrologist: Ben Landrum Anesthesiologist/WORDPRESS DEVELOPER: Dana Altman Anesthesia: General Specimens Removed: Uteruse, cervix, bilat tubes and ovaries, ascites (7950 mL) and omentum Further Plan Per Petroleum Inspector dvt prophylaxis Code(s): Z90.710 - ACQUIRED ABSENCE OF BOTH CERVIX AND UTERUS; Z90.722 - ACQUIRED ABSENCE OF OVARIES, BILATERAL; Z90.79 - ACQUIRED ABSENCE OF OTHER GENITAL ORGAN(S) (2) CHF (congestive heart failure) Assessment/Plan: -Stable -Monitor -Lasix -Cardio Code(s): I50.9 - HEART FAILURE, UNSPECIFIED (3) CKD (chronic kidney disease) Assessment/Plan: -Monitor Labs -Renal consult Code(s): N18.9 - CHRONIC KIDNEY DISEASE, UNSPECIFIED (4) HTN (hypertension) Assessment/Plan: -Monitor Vital Signs Period Temp Pulse Resp BP Sys/Vega Pulse Ox Last 24 Hr 97.8 F-98.6 F 53-81 14-20 125-156/51-82 90-100 Orders 05/27/18 22:00 Metoprolol Tartrate [Lopressor -] 25 mg PO BID 05/28/18 10:00 Losartan Potassium [Cozaar -] 50 mg PO DAILY Code(s): I10 - ESSENTIAL (PRIMARY) HYPERTENSION
--- NOTE | 2018-05-29 09:43 | PN ---
Progress Note (short form) - Note Progress Note: POD#2 Open abdominal TAHBSO, partial omentectomy, umbilical hernia repair. Patient seen and examined. Patient states her pain is controlled. She is urinating without issue, reports a BM last night. Has been oob without issue, tolerating PO. Denies any CP, SOB, N/V, calf pain/edema. Vital Signs Temp 98.8 F 05/29/18 06:00 Pulse 65 05/29/18 06:00 Resp 20 05/29/18 06:00 BP 148/70 05/29/18 06:00 Pulse Ox 100 05/28/18 21:00 Intake & Output 05/28/18 05/28/18 05/29/18 11:59 23:59 11:59 Intake Total 1320 300 120 Output Total 200 400 500 Balance 1120 -100 -380 Weight 143 lb 143 lb 139 lb 6.4 oz Intake: IV 900 LACTATED RINGERS SOLUTION 900 1,000 ml In 1,000 ml @ 75 mls/hr IV ASDIR [facility] Rx #:[id number] IVPB 100 Oral 320 300 120 Output: Urine 200 400 500 Granados 200 400 500 Other: Voiding Method Indwelling Catheter Toilet Toilet # Unmeasured Voids Granados 1 Bowel Movement No No Height 5 ft 3 in Body Mass Index (BMI) 25.3 Weight Measurement Method Standing Scale Standing Scale CBC, BMP 05/29/18 06:00 05/29/18 06:00 Peritoneal fluid gram stain, protein and albumin pending PE: Gen: A&Ox3, NAD Resp: cta b/l CV: rrr, s1s2 ABD: distended, soft throughout, mild TTP throughout appropriate to status, Midline incision c/d/i with mariano in place, no erythema or drainage from incision. Re-dressed with 4x4 and abd. Ext: B/L calf soft, nt A/P: 67 y/o F w/ PMHx HTN, CKD, diastolic/systolic CHF, large abdominal mass, now s/ p open abdominal TAHBSO, partial omentectomy, and umbilical repair on 05/27. Doing well post op, ambulating and tolerating diet. Voiding without issue, had BM last night. Afebrile, VSS, labs stable. -f/u Peritoneal fluid gram stain/culture protein/albumin -OOB as tolerated with assist -Keep dressing clean and dry -Pain control as ordered -Lovenox 30mg qd, b/l scds -Plan for d/c later today d/w attending Frankie
[2018-05-29] MEDS: FUROSEMIDE 40 MG TABLET (FP) PO SCH (10:00)
[2018-05-29] MEDS: ESCITALOPRAM OXALATE 10 MG TABLET (FP) PO SCH (10:00)
[2018-05-29] MEDS: METOPROLOL TARTRATE 25 MG TABLET (FP) PO SCH (10:00)
[2018-05-29] MEDS: PANTOPRAZOLE 40 MG TABLET (FP) PO SCH (10:00)
[2018-05-29] MEDS: ROSUVASTATIN CA 20 MG TABLET (FP) PO SCH (10:00)
[2018-05-29] MEDS: LOSARTAN POTASSIUM 50 MG TABLET (FP) PO SCH (10:00)
[2018-05-29] MEDS: ENOXAPARIN NA (PORCINE) 30 MG/0.3 ML DISP.SYRIN SQ SCH (11:45)
[2018-05-29] MEDS: oxyCODONE HCL 5 MG TABLET PO PRN (12:11)
--- NOTE | 2018-05-29 14:41 | PN ---
Progress Note, Physician History of Present Illness: Pt seen and examined at bedside. She feels that her PO intake is improved today. - Current Medication List Current Medications: Active Medications Acetaminophen (Tylenol -) 325 mg PO Q6H PRN PRN Reason: PAIN 1-5 Last Admin: 05/28/18 11:42 Dose: 325 mg Enoxaparin Sodium (Lovenox -) 30 mg SQ DAILY [facility] Last Admin: 05/29/18 11:45 Dose: 30 mg Escitalopram Oxalate (Lexapro -) 10 mg PO DAILY [facility] Last Admin: 05/29/18 10:00 Dose: 10 mg Furosemide (Lasix -) 40 mg PO DAILY [facility] Last Admin: 05/29/18 10:00 Dose: 40 mg Losartan Potassium (Cozaar -) 50 mg PO DAILY [facility] Last Admin: 05/29/18 10:00 Dose: Not Given Metoprolol Tartrate (Lopressor -) 25 mg PO BID [facility] Last Admin: 05/29/18 10:00 Dose: 25 mg Morphine Sulfate (Morphine Sulfate) 2 mg IVPUSH Q2H PRN PRN Reason: PAIN LEVEL 6-10 Last Admin: 05/28/18 06:52 Dose: 2 mg Ondansetron HCl (Zofran Injection) 4 mg IVPUSH Q6H PRN PRN Reason: NAUSEA AND/OR VOMITING Oxycodone HCl (Roxicodone -) 5 mg PO Q6H PRN PRN Reason: PAIN LEVEL 1-5 Last Admin: 05/29/18 12:11 Dose: 5 mg Pantoprazole Sodium (Protonix -) 40 mg PO DAILY [facility] Last Admin: 05/29/18 10:00 Dose: 40 mg Rosuvastatin Calcium (Crestor -) 20 mg PO DAILY [facility] Last Admin: 05/29/18 10:00 Dose: 20 mg - Objective Vital Signs: Vital Signs Temperature 98.8 F 05/29/18 06:00 Pulse Rate 65 05/29/18 06:00 Respiratory Rate 20 05/29/18 06:00 Blood Pressure 148/70 05/29/18 06:00 O2 Sat by Pulse Oximetry (%) 100 05/28/18 21:00 Constitutional: Yes: Calm Eyes: Yes: Conjunctiva Clear HENT: Yes: Atraumatic Neck: Yes: Supple Cardiovascular: Yes: S1, S2 Respiratory: Yes: CTA Bilaterally Gastrointestinal: Yes: Normal Bowel Sounds, Other (soft) Musculoskeletal: Yes: WNL Edema: No Neurological: Yes: Oriented Psychiatric: Yes: Oriented Labs: CBC, BMP 05/29/18 06:00 05/29/18 06:00 Problem List - Problems (1) CKD (chronic kidney disease) Code(s): N18.9 - CHRONIC KIDNEY DISEASE, UNSPECIFIED Assessment/Plan Current Medications Generic Name Dose Route Start Last Admin Trade Name Freq PRN Reason Stop Dose Admin Acetaminophen 325 mg 05/27/18 15:17 05/28/18 11:42 Tylenol - PO 325 mg Q6H PRN Administration PAIN 1-5 Enoxaparin Sodium 30 mg 05/28/18 10:00 05/29/18 11:45 Lovenox - SQ 30 mg DAILY [facility] Administration Escitalopram Oxalate 10 mg 05/28/18 10:00 05/29/18 10:00 Lexapro - PO 10 mg DAILY [facility] Administration Furosemide 40 mg 05/28/18 10:00 05/29/18 10:00 Lasix - PO 40 mg DAILY [facility] Administration Losartan Potassium 50 mg 05/28/18 10:00 05/29/18 10:00 Cozaar - PO Not Given DAILY [facility] Metoprolol Tartrate 25 mg 05/27/18 22:00 05/29/18 10:00 Lopressor - PO 25 mg BID [facility] Administration Morphine Sulfate 2 mg 05/27/18 22:46 05/28/18 06:52 Morphine Sulfate IVPUSH 2 mg Q2H PRN Administration PAIN LEVEL 6-10 Ondansetron HCl 4 mg 05/27/18 13:48 Zofran Injection IVPUSH Q6H PRN NAUSEA AND/OR VOMITING Oxycodone HCl 5 mg 05/27/18 15:17 05/29/18 12:11 Roxicodone - PO 5 mg Q6H PRN Administration PAIN LEVEL 1-5 Pantoprazole Sodium 40 mg 05/28/18 10:00 05/29/18 10:00 Protonix - PO 40 mg DAILY [facility] Administration Rosuvastatin Calcium 20 mg 05/28/18 10:00 05/29/18 10:00 Crestor - PO 20 mg DAILY [facility] Administration Impression 1. CKD 2. s/p hysterectomy 3. HTN 4. hx pleural effusion 5. CHF 6. 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
[2018-05-29] MEDS ORDERED: SODIUM CHLORIDE 0.45% 1,000 ML IV SCH (14:45)
[2018-05-29 15:12] VITALS: BP 105/52; PULSE 67; TEMP 97.4
[2018-05-30 11:22] LABS: TOTAL PROTEIN,PERITONEAL FLUID 5 gm/dL
--- NOTE | 2018-06-03 10:33 | PATH ---
Surgical Pathology Report Patient Name: SHILO HAMPTON [facility]. Rec. 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 Differential includes sex cord stromal tumor. Irving Alejandro M.D., 05/27/2018 Final Diagnosis A. 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 FALLOPIAN TUBE WITH PARATUBAL CYST. SEE COMMENT. B. UTERUS, CERVIX, LEFT OVARY AND FALLOPIAN TUBE, EXPLORATORY LAPAROTOMY: ENDOMETRIUM WITH CYSTIC ATROPHY. MYOMETRIUM WITH LEIOMYOMA AND ADENOMYOSIS. CERVIX WITH CHRONIC CERVICITIS. OVARY WITH SEROUS CYST. FALLOPIAN TUBE WITH DENSE ADHESIONS. C. OMENTUM, BIOPSY: BENIGN OMENTAL ADIPOSE TISSUE WITH CHRONIC INFLAMMATION, PROMINENT LYMPHOID AGGREGATES, AND MESOTHELIAL HYPERPLASIA. D. UMBILICAL HERNIA SAC, REPAIR: HERNIA SAC. Comment: Part A, Histologic sections show a spindle cell neoplasm with bland nuclei. Areas of increased cellularity with intersecting fascicles and storiform pattern present. Rare mitosis identified (up to 3 mitosis/10 hpf). Focal edematous and cystic changes as well as hemorrhage are present. Rare calcifications noted. Immunohistochemical stains performed at [place], [place] ([id number]) and interpreted at [facility] show the neoplasm is positive for calretinin (patchy), Inhibin (weak), SMA (patchy), CD99 (weak to moderate); while negative for ANGELA, desmin, and CD10. Proliferative marker is low, ki-67 <1%. 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 Part B, intramural leiomyoma is positive for SMA, while negative for CD10. Electronically Signed Shania Harris M.D. Gross Description A. Received fresh labeled "right fallopian tube and ovary," is a 1717 g, 21.0 x 15.5 x 11.0 cm firm fleshy mass. There is a 4.5 cm in length fimbriated fallopian tube attached to the outer surface of the mass. The outer surface of the fallopian tube is pink-pagan and smooth with focal adhesions. Sectioning reveals an unremarkable fallopian tube lumen. Sectioning of the mass reveals pagan, whorled, firm to rubbery parenchyma with foci of degeneration and hemorrhage. No normal ovarian parenchyma is identified. Body Builder sections of the mass are submitted for frozen section. Body Builder sections are submitted in 14 cassettes as follows: 1-frozen section residue; 2-fallopian tube fimbria; 3-cross sections of fallopian tube; 2-54-daaywvvzohqxxt mass. B. Received in formalin labeled "uterus, cervix, left tube and left ovary," is an 89 g uterus with attached cervix and attached left fallopian tube and left ovary. The specimen measures 8 cm from superior to inferior, 5 cm from left to right and 4 cm from anterior to posterior. The serosa is pink-pagan and smooth. The attached cervix measures 3 cm in length and 2.7 cm in diameter. The ectocervix is pink-pagan, smooth and glistening. The endocervix is unremarkable. The endometrial cavity measures 4 cm in length and 2 cm from cornu to cornu. The endometrium is pagan and averages 0.2 cm in thickness. The myometrium displays multiple intramural nodules, measuring up to 2.0 cm in greatest dimension. The cut surface of the nodules is pagan and rubbery with whorled architecture. No areas of hemorrhage or necrosis are identified. The remaining myometrium is pagan-pink and averages 2 cm in thickness. The left fimbriated fallopian tube measures 3.5 cm in length. The outer surface is rogers purple with dense tubal ovarian adhesions. The attached right ovary measures 4.5 x 1.7 x 1.5 cm, including a 3 cm in greatest dimension intact cyst containing clear serous fluid. The inner lining of the cyst is smooth. The remaining ovarian parenchyma is pagan and unremarkable. Body Builder sections are submitted in 14 cassettes as follows: 1-anterior cervix; 2-posterior cervix; 2-3-eattmixa endomyometrium; 6-0-qtcudpffv endomyometrium; 8-5-khvknxbype nodules; 9-left fallopian tube fimbria; 10-cross sections of left fallopian tube; 11-12-left ovarian cyst; 42-04-fsqhvuonsh left ovary. C. Received in formalin labeled "omental biopsy," is an 8.0 x 5.7 x 1.4 cm aggregate of yellow, lobulated adipose tissue, consistent with omentum. No discrete lesions are identified. Body Builder sections are submitted in 5 cassettes. D. Received in formalin labeled "umbilical hernia sac," is a 3.0 x 2.8 x 1.0 cm aggregate of pagan phelan, irregular portions of fibrous tissue with minimal attached fat. Body Builder sections are submitted in one cassette. D. 05/27/201805/27/2018
== END 2018-05-29 15:30 | disposition home or self-care (01) | DRG 742 ==
LOC: JSAMEDAYSX 05-27 08:27 → J4S 05-27 17:15
PROVIDERS: ADMIT Obstetrics & Gynecology Gynecologic Oncology; ATTEND Obstetrics & Gynecology Gynecologic Oncology
PROC: 0WQF0ZZ Repair Abdominal Wall, Open Approach (ICD-10-PCS; 2018-05-27)
PROC: 0WJG0ZZ Inspection of Peritoneal Cavity, Open Approach (ICD-10-PCS; 2018-05-27)
PROC: 0UT70ZZ Resection of Bilateral Fallopian Tubes, Open Approach (ICD-10-PCS; 2018-05-27)
PROC: 0DBU0ZZ Excision of Omentum, Open Approach (ICD-10-PCS; 2018-05-27)
PROC: 0UT90ZZ Resection of Uterus, Open Approach (ICD-10-PCS; principal; 2018-05-27 10:00)
DX: D27.0 Benign neoplasm of right ovary (principal); I50.42 Chronic combined systolic (congestive) and diastolic (congestive) heart failure; I13.0 Hypertensive heart and chronic kidney disease with heart failure and stage 1 through stage 4 chronic kidney disease, or unspecified chronic kidney disease; R18.8 Other ascites; K42.9 Umbilical hernia without obstruction or gangrene; K21.9 Gastro-esophageal reflux disease without esophagitis; N18.9 Chronic kidney disease, unspecified; Z87.891 Personal history of nicotine dependence
CPT/HCPCS: 36415; 80048; 81003; 81015; 82040; 82042; 84157; 85025; 85027; 86850; 86900; 86901; 87070; 87075; 87205; 88108; 88302-TC; 88305-TC; 88307-TC; 88331-TC; 89051; 94010; 94760